=== PATIENT | male | born 1950 | race Caucasian/White ===

== ENCOUNTER 2020-12-17 03:04 | Inpatient (IN) | payer MEDICARE ==
[2020-12-17] MEDS ORDERED: ALBUTEROL NEBULIZED 2.5 MG/3 ML INHALATION PRN (03:50)
[2020-12-17] MEDS ORDERED: PNEUMONIA PROTOCOL UTILIZED 1 EACH MISC PO PRN (03:50)
--- NOTE | 2020-12-17 03:58 | ED ---
SOB HPI - General Chief Complaint: Shortness of Breath Stated Complaint: SOB Time Seen by Provider: 12/17/20 03:12 Source: EMS Mode of arrival: EMS - History of Present Illness Initial Comments: This patient is a 70-year-old man transferred here from [facility]. The patient had reportedly been taken there for cough and some shortness of breath. When I interview the patient, he states he feels well and if it were up to him he would go home, but they sent him here to be admitted for pneumonia. Patient currently denying pain or dyspnea. The patient had chest x-ray at the other hospital which reportedly showed some bilateral interstitial infiltrate. Labs showed white blood cell count 12,200. He had lactic acid level 2.8. The patient was given cefepime 2 g and Solu-Medrol 125 mg MD Complaint: shortness of breath, cough -: days(s) Severity scale (1-10): 0 Consistency: constant Improves With: nothing Worsens With: nothing Known History Of: COPD Associated Symptoms: cough Treatments Prior to Arrival: oxygen, bronchodilator, other (Antibiotics, Solu- Medrol) - Related Data Home Medications Medication Instructions Recorded Confirmed ALPRAZolam [Xanax] 0.5 mg PO TID 12/17/20 12/17/20 Albuterol Nebulized [Ventolin 2.5 mg INHALATION RT-TID 12/17/20 12/17/20 Nebulized] Apixaban [Eliquis] 5 mg PO BID 12/17/20 12/17/20 Aspirin EC [Ecotrin Low Dose] 81 mg PO DAILY 12/17/20 12/17/20 Baclofen [Lioresal] 10 mg PO BID 12/17/20 12/17/20 Brivaracetam [Briviact] 100 mg PO BID 12/17/20 12/17/20 Cyanocobalamin [Vitamin B-12] 500 mcg PO DAILY 12/17/20 12/17/20 Donepezil [Aricept] 10 mg PO HS 12/17/20 12/17/20 Flecainide Acetate 100 mg PO BID 12/17/20 12/17/20 Fluticasone Nasal [place] [Flonase 1 spray EA NOSTRIL DAILY 12/17/20 12/17/20 Nasal [place]] Furosemide [Lasix] 20 mg PO BID 12/17/20 12/17/20 Ipratropium Nebulized [Atrovent 0.5 mg INHALATION RT-TID 12/17/20 12/17/20 Nebulized 0.2 MG/ML] Lacosamide [Vimpat] 200 mg PO BID 12/17/20 12/17/20 Levothyroxine Sodium [Synthroid] 75 mcg PO AC-BRKFST 12/17/20 12/17/20 Loratadine 10 mg PO DAILY 12/17/20 12/17/20 Metoprolol Tartrate [Lopressor] 25 mg PO BID 12/17/20 12/17/20 Mometasone/Formoterol [Dulera 100 2 puff INHALATION RT-BID 12/17/20 12/17/20 Mcg-5 Mcg Inhaler] Omeprazole 40 mg PO DAILY 12/17/20 12/17/20 PARoxetine [Paxil] 20 mg PO DAILY 12/17/20 12/17/20 Potassium Chloride ER [K-Dur 20] 20 meq PO DAILY 12/17/20 12/17/20 Rosuvastatin Calcium [Crestor] 10 mg PO HS 12/17/20 12/17/20 Zonisamide [Zonegran] 200 mg PO BID 12/17/20 12/17/20 lisinopriL [Zestril] 5 mg PO DAILY 12/17/20 12/17/20 Allergies Allergy/AdvReac Type Severity Reaction Status Date / Time No Known Allergies Allergy Verified 12/17/20 07:21 Review of Systems ROS Statement: Those systems with pertinent positive or pertinent negative responses have been documented in the HPI. ROS Other: All systems not noted in ROS Statement are negative. Constitutional: Denies: fever Respiratory: Reports: cough. Denies: dyspnea Cardiovascular: Denies: chest pain, palpitations, orthopnea, edema Gastrointestinal: Denies: abdominal pain, nausea, vomiting, diarrhea Genitourinary: Denies: dysuria, hematuria Musculoskeletal: Denies: back pain Skin: Denies: rash Neurological: Denies: headache, weakness, numbness Past Medical History Past Medical History: Atrial Fibrillation, COPD, GERD/Reflux, Hyperlipidemia, Hypertension, Memory Impairment, Seizure Disorder, Sleep Apnea/CPAP/BIPAP, Thyroid Disorder Additional Past Medical History / Comment(s): dementi, anxiety, depression, chris, epilepsy, chf, uti, back pain, tbi causing right sided weakness, pacer History of Any Multi-Drug Resistant Organisms: None Reported Additional Past Surgical History / Comment(s): pacer, colonoscopy Past Psychological History: Anxiety, Depression Smoking Status: Current every day smoker Past Alcohol Use History: Occasional Past Drug Use History: None Reported General Exam General appearance: alert, in no apparent distress Head exam: Present: atraumatic, normocephalic Eye exam: Present: normal appearance. Absent: scleral icterus, conjunctival injection Neck exam: Present: normal inspection Respiratory exam: Present: rales. Absent: respiratory distress, wheezes, rhonchi, stridor, chest wall tenderness, accessory muscle use, decreased breath sounds Cardiovascular Exam: Present: regular rate, normal rhythm, normal heart sounds. Absent: systolic murmur, diastolic murmur, rubs, gallop GI/Abdominal exam: Present: soft. Absent: distended, tenderness, guarding, rebound, rigid, mass Extremities exam: Present: normal inspection, normal capillary refill. Absent: pedal edema, calf tenderness Back exam: Present: normal inspection. Absent: CVA tenderness (R), CVA tendern ess (L) Neurological exam: Present: alert Skin exam: Present: warm, dry, intact, normal color. Absent: rash Course Vital Signs 12/17/20 12/17/20 12/17/20 03:20 04:49 07:35 Temperature 98 F 97.7 F Pulse Rate 60 60 60 Respiratory 18 18 18 Rate Blood Pressure 111/56 102/64 102/68 O2 Sat by Pulse 96 98 98 Oximetry 12/17/20 12/17/20 12/17/20 08:00 09:00 10:00 Temperature Pulse Rate 60 60 60 Respiratory 19 18 18 Rate Blood Pressure 102/68 95/60 95/60 O2 Sat by Pulse 96 92 L 94 L Oximetry 12/17/20 12/17/20 12/17/20 10:45 10:56 12:00 Temperature Pulse Rate 60 60 60 Respiratory 15 Rate Blood Pressure 96/51 O2 Sat by Pulse 96 Oximetry 12/17/20 12/17/20 12/17/20 14:09 15:00 16:00 Temperature 97.9 F Pulse Rate 60 62 Respiratory 20 20 Rate Blood Pressure 92/61 O2 Sat by Pulse 96 96 96 Oximetry 12/17/20 12/17/20 12/17/20 16:21 16:30 20:04 Temperature Pulse Rate 71 60 60 Respiratory Rate Blood Pressure O2 Sat by Pulse Oximetry 12/17/20 12/17/20 20:13 20:14 Temperature 97.7 F Pulse Rate 60 70 Respiratory 18 Rate Blood Pressure 99/75 O2 Sat by Pulse 98 Oximetry Medical Decision Making - Lab Data Result diagrams: 12/18/20 06:23 12/18/20 06:23 - EKG Data -: EKG Interpreted by [facility] EKG shows normal: axis (Rightward axis) Rate: normal (60 bpm) Interpretation: nonspecific ST-T wave changes, other (Underlying rhythm appears to be atrial paced rhythm with first-degree AV block.) Disposition Clinical Impression: Pneumonia Disposition: ADMITTED IP TO THIS [facility] Condition: Fair
[2020-12-17] MEDS: IPRATROPIUM-ALBUTEROL 3 ML NEB INHALATION SCH ×5 (07:10→20:02)
[2020-12-17] MEDS ORDERED: HEPARIN SODIUM,PORCINE/PF 5,000 UNIT/0.5 ML SYRINGE SQ SCH (09:00)
--- NOTE | 2020-12-17 09:22 | P.HPIM ---
History of Present Illness This is a pleasant 70 years old male with past medical history of hypertension, hyperlipidemia, atrial fibrillation, COPD, GERD, seizure disorder, sleep apnea on CPAP/BiPAP. History of depression, anxiety, dementia and chronic back pain Patient is transferred from [facility] for COPD and pneumonia. Patient is poor historian kind of problem because of history of dementia. He doesn't know why he went or send him to the hospital at [facility] [place]. However he can tell me he lives in his own place, he wears related to her per minute of oxygen nasal cannula. He smokes about 1 pack per day. It looks somewhat tachypneic but denies dyspnea or chest pain or coughing. No abdominal pain or nausea vomiting. EKG showing electrical atrial pacemaker rate is 60 bpm Vitals are stable, he is saturating 98% on 4 L oxygen via nasal cannula. Patient is currently covered with ceftriaxone and Zithromax. Also he is on subcutaneous heparin. On reviewing the records from [facility] he has multiple problems like hypothyroidism, hyperlipidemia, dementia, depression, obstructive sleep apnea, seizure disorder, hypertension, atrial fibrillation and congestive heart failure, chronic obstructive pulmonary disease, gastroesophageal reflux disease, benign prostatic hyperplasia. Chronic back pain. Chest x-ray showing bilateral infiltrates and/or edema Urine analysis looking turbid, blood is large, nitrite is negative Lactic acid slightly elevated at 2.8. Troponin is -0.02. Magnesium 1.9, proBNP is 147 Sodium 142, potassium 4.1, a woman 4.0, liver enzymes not elevated. Creatinine 1.0, total bilirubin 0.5, WBC is 12.2 which is slightly elevated. Platelet 140 6K, hemoglobin 16 Patient was getting cefepime and Solu-Medrol 125 mg 2 Review of Systems CONSTITUTIONAL: No fever, no malaise, no fatigue. HEENT: No recent visual problems or hearing problems. Denied any sore throat. CARDIOVASCULAR: No orthopnea, PND, no palpitations, no syncope. PULMONARY: No shortness of breath, no cough, no hemoptysis. GASTROINTESTINAL: No diarrhea, no nausea, no vomiting, no abdominal pain. No rmoactive bowel sounds. NEUROLOGICAL: No headaches, no weakness, no numbness. HEMATOLOGICAL: Denies any bleeding or petechiae. GENITOURINARY: Denies any burning micturition, frequency, or urgency. MUSCULOSKELETAL/RHEUMATOLOGICAL: Denies any joint pain, swelling, or any muscle pain. ENDOCRINE: Denies any polyuria or polydipsia. Past Medical History Past Medical History: Atrial Fibrillation, COPD, GERD/Reflux, Hyperlipidemia, Hypertension, Memory Impairment, Seizure Disorder, Sleep Apnea/CPAP/BIPAP, Thyroid Disorder Additional Past Medical History / Comment(s): dementi, anxiety, depression, chris, epilepsy, chf, uti, back pain, tbi causing right sided weakness, pacer History of Any Multi-Drug Resistant Organisms: None Reported Additional Past Surgical History / Comment(s): pacer, colonoscopy Past Psychological History: Anxiety, Depression Smoking Status: Current every day smoker Past Alcohol Use History: Occasional Past Drug Use History: None Reported Medications and Allergies Home Medications Medication Instructions Recorded Confirmed Type ALPRAZolam [Xanax] 0.5 mg PO TID 12/17/20 12/17/20 History Albuterol Nebulized [Ventolin 2.5 mg INHALATION RT-TID 12/17/20 12/17/20 History Nebulized] Apixaban [Eliquis] 5 mg PO BID 12/17/20 12/17/20 History Aspirin EC [Ecotrin Low Dose] 81 mg PO DAILY 12/17/20 12/17/20 History Baclofen [Lioresal] 10 mg PO BID 12/17/20 12/17/20 History Brivaracetam [Briviact] 100 mg PO BID 12/17/20 12/17/20 History Cyanocobalamin [Vitamin B-12] 500 mcg PO DAILY 12/17/20 12/17/20 History Donepezil [Aricept] 10 mg PO HS 12/17/20 12/17/20 History Flecainide Acetate 100 mg PO BID 12/17/20 12/17/20 History Fluticasone Nasal [place] [Flonase 1 spray EA NOSTRIL DAILY 12/17/20 12/17/20 History Nasal [place]] Furosemide [Lasix] 20 mg PO BID 12/17/20 12/17/20 History Ipratropium Nebulized [Atrovent 0.5 mg INHALATION RT-TID 12/17/20 12/17/20 History Nebulized 0.2 MG/ML] Lacosamide [Vimpat] 200 mg PO BID 12/17/20 12/17/20 History Levothyroxine Sodium [Synthroid] 75 mcg PO AC-BRKFST 12/17/20 12/17/20 History Loratadine 10 mg PO DAILY 12/17/20 12/17/20 History Metoprolol Tartrate [Lopressor] 25 mg PO BID 12/17/20 12/17/20 History Mometasone/Formoterol [Dulera 100 2 puff INHALATION RT-BID 12/17/20 12/17/20 History Mcg-5 Mcg Inhaler] Omeprazole 40 mg PO DAILY 12/17/20 12/17/20 History PARoxetine [Paxil] 20 mg PO DAILY 12/17/20 12/17/20 History Potassium Chloride ER [K-Dur 20] 20 meq PO DAILY 12/17/20 12/17/20 History Rosuvastatin Calcium [Crestor] 10 mg PO HS 12/17/20 12/17/20 History Zonisamide [Zonegran] 200 mg PO BID 12/17/20 12/17/20 History lisinopriL [Zestril] 5 mg PO DAILY 12/17/20 12/17/20 History Allergies Allergy/AdvReac Type Severity Reaction Status Date / Time No Known Allergies Allergy Verified 12/17/20 07:21 Physical Exam Vitals: Vital Signs Temp Pulse Resp BP Pulse Ox 12/17/20 04:49 60 18 102/64 98 12/17/20 03:20 98 F 60 18 111/56 96 Intake and Output 12/16/20 12/17/20 12/17/20 22:59 06:59 14:59 Other: Weight 117.934 kg GENERAL: The patient is alert and oriented x3, not in any acute distress. Well developed, well nourished. HEENT: Pupils are round and equally reacting to light. EOMI. No scleral icterus. No conjunctival pallor. Normocephalic, atraumatic. No pharyngeal erythema. No thyromegaly. CARDIOVASCULAR: S1 and S2 present. No murmurs, rubs, or gallops. -PULMONARY: Chest is clear to auscultation, no wheezing or crackles. Bilateral decreased base of breath sounds ABDOMEN: Soft, nontender, nondistended, normoactive bowel sounds. No palpable organomegaly. MUSCULOSKELETAL: No joint swelling or deformity. EXTREMITIES: No cyanosis, clubbing, or pedal edema. NEUROLOGICAL: Gross neurological examination did not reveal any focal deficits. SKIN: No rashes. No petechiae Assessment and Plan Assessment: Bilateral pneumonia abnormal urine analysis from [facility] showing blood in urine. Repeat urinalysis Hypertension Hyperlipidemia History of atrial fibrillation and congestive heart failure. Patient is on Eliquis COPD, not in acute exacerbation History of GERD History of seizure disorder Sleep apnea on CPAP/BiPAP History of depression and anxiety Dementia Benign prostatic hyperplasia Plan: This is a pleasant 70 years old male who was transferred from [facility] for pneumonia. Follow-up chest x-ray today. Continue with antibiotics. Head of bed 30 45. Check sputum culture. Check lactic acid and morning labs. Infectious disease consult repeat urinalysis. New with seizure medication zonisamide, Vimpat Social work consult Labs and medication were reviewed.. Continue same treatment. Continue with symptomatic treatment. Resume home medication. Monitor lytes and vitals. DVT and GI prophylaxis. Further recommendations depends on the clinical course of the patient DVT prophylaxis: Eliquis GI Prophylaxis: Pepcid PT/OT: Pending Prognosis is guarded
[2020-12-17] MEDS: ASPIRIN 81 MG PO SCH (09:36)
[2020-12-17] MEDS: LACOSAMIDE 50 MG TABLET PO SCH ×2 (09:36→21:28)
[2020-12-17] MEDS: BACLOFEN 10 MG TAB PO SCH ×2 (09:37→21:29)
[2020-12-17] MEDS: FUROSEMIDE 20 MG TAB PO SCH ×2 (09:37→18:13)
[2020-12-17] MEDS: PARoxetine 20 MG TAB PO SCH (09:37)
--- NOTE | 2020-12-17 10:02 | XR ---
EXAMINATION TYPE: XR chest 1V DATE OF EXAM: 12/17/2020 COMPARISON: 12/17/2020 HISTORY: Cough TECHNIQUE: Single frontal view of the chest is obtained. FINDINGS: Cardiac device seen and there is a coarsened interstitium with bibasilar subsegmental cons olidation. No gross pleural effusion or pneumothorax. Heart is enlarged. IMPRESSION: 1. Correlate for interstitial pneumonitis or venous congestion with basilar infiltrate.
[2020-12-17] MEDS: ZONISAMIDE 100 MG CAP PO SCH ×2 (10:36→22:12)
[2020-12-17] MEDS: FLECAINIDE 50 MG TAB PO SCH ×2 (10:37→21:29)
[2020-12-17 11:13] LABS: ALT 11 U/L (4-49); AST 16 U/L (17-59); African American GFR (CKD) >90 (>60 ml/min/1.73 sqM); Albumin 3.1 g/dL (3.5-5.0); Albumin/Globulin Ratio 1.2; Alkaline Phosphatase 81 U/L (38-126); Anion Gap 7 mmol/L; Bilirubin,Unconjugated 0.4 mg/dL (0.0-1.1); Blood Urea Nitrogen 14 mg/dL (9-20); Calcium 8.5 mg/dL (8.4-10.2); Carbon Dioxide 26 mmol/L (22-30); Chloride 107 mmol/L (98-107); Globulin 2.6 g/dL; Glucose 190 mg/dL (74-99); LDH 300 U/L (313-618); Magnesium 1.8 mg/dL (1.6-2.3); Non-African American GFR(CKD) 86 (>60 ml/min/1.73 sqM); Potassium 4.2 mmol/L (3.5-5.1); Sodium 140 mmol/L (137-145); Total Bilirubin 0.5 mg/dL (0.2-1.3); Total Protein 5.7 g/dL (6.3-8.2)
[2020-12-17] MEDS ORDERED: IPRATROPIUM 0.5 MG/2.5 ML NEBU INHALATION SCH (13:00)
[2020-12-17] MEDS: SYMBICORT 80-4.5 MCG INHALER INHALATION SCH (20:03)
[2020-12-17] MEDS: SODIUM CHLORIDE 0.9% 1,000 ML IV SCH (20:27)
[2020-12-17] MEDS: DONEPEZIL 10 MG TAB PO SCH (21:29)
[2020-12-17] MEDS: ATORVASTATIN 20 MG TAB PO SCH (21:29)
[2020-12-17] MEDS: APIXABAN 5 MG TAB PO SCH (21:29)
[2020-12-17] MEDS: FAMOTIDINE 20 MG/2 ML VIAL IV SCH (21:29)
[2020-12-17] MEDS: ALPRAZolam 0.5 MG TAB PO PRN (23:22)
[2020-12-18] MEDS: SODIUM CHLORIDE 0.9% 1,000 ML IV SCH (05:19)
--- NOTE | 2020-12-18 07:10 | CONS ---
CONSULTATION DATE OF SERVICE: 12/17/2020 REASON FOR CONSULTATION: Pneumonia. HISTORY OF PRESENT ILLNESS: The patient is a 70-year-old male who apparently presented initially to [facility] for cough and shortness of breath. The patient subsequently was evaluated at that facility. The patient did have a chest x-ray with evidence of bilateral interstitial infiltrate. The patient did have white count of 12,000, lactic acid 2.8. With concern for pneumonia, he was given a dose of cefepime and Solu-Medrol. Subsequently the patient was transferred to the [facility] for further evaluation. On arrival to this facility, the patient has been afebrile. The patient is currently requiring supplemental oxygen of 4 liters, down to 3 liters. Patient now specifically mentioned he is feeling fine. The patient denies any headache or URI symptoms. Denies any chest pain or shortness of breath. Did have some cough. No sputum production. No nausea, vomiting. No abdominal pain. No diarrhea. Overall feeling better and is not sure why he is in the hospital. REVIEW OF SYSTEMS: Positive points have been mentioned in HPI. Rest of the systems are negative. PAST MEDICAL HISTORY: Atrial fibrillation, COPD, gastroesophageal reflux disease, hyperlipidemia, hypertension, seizure disorder, hypothyroidism, dementia. PAST SURGICAL HISTORY: Pacemaker placement and colonoscopy. SOCIAL HISTORY: Current everyday smoker. Smokes 1 pack a day. Occasionally drinks. No drug use. FAMILY HISTORY: No pertinent findings noticed. ALLERGIES: No known drug allergies. MEDICATIONS: The patient is currently on Ventolin, DuoNeb, Xanax, Eliquis, aspirin, Lipitor, Zithromax, Baclofen, Rocephin 2 grams daily, Aricept, Pepcid, Lasix, Synthroid, Paxil, and IV fluid. PHYSICAL EXAMINATION: VITAL SIGNS: Blood pressure 130/68 with a pulse of 71, temperature 97.7, he is 93% on 3 L nasal cannula. GENERAL DESCRIPTION: Patient is an elderly male lying in bed in no distress. No tachypnea or accessory muscles of respiration use. HEENT: Examination shows no pallor or scleral icterus. Oral mucous membrane is dry. NECK: Trachea central, no thyromegaly. LUNGS: Unlabored breathing, clear to auscultation anteriorly. No wheeze or crackle. HEART: S1-S2, regular rate and rhythm. ABDOMEN: Soft, no tenderness. No guarding or rigidity. EXTREMITIES: No edema of the feet. SKIN: No rash or mass palpable. NEUROLOGICAL: Patient is awake, alert, oriented times two. Mood and affect normal. LABS: BUN of 14, creatinine 0.91. LDH was 300. CRP 8, procalcitonin 0.17. [place] and influenza PCR negative. Chest x-ray with interstitial infiltrate. DIAGNOSTIC IMPRESSION AND PLAN: Patient admitted to the hospital with increasing shortness of breath and cough in this patient who did have leukocytosis, interstitial infiltrate and concern for pneumonia, possibly community-acquired. COVID-19 has been ruled out. PLAN: 1. We will obtain a sputum for Gram stain culture. 2. Check urine for Legionella antigen. 3. Continue Rocephin and Zithromax. 4. We will follow on his clinical condition and culture to further adjust medication if needed. Thank you for this consultation. Will follow this patient along with you. MMTINYL / IJN: [id number] /
[2020-12-18 07:35] LABS: Appearance,Urine Clear (Clear); Bilirubin,Urine Negative (Negative); Blood,Urine Large (Negative); Calcium Oxalate Crystals,Urine Rare /hpf; Color,Urine Yellow; Glucose,Urine (UA) Negative (Negative); Ketones,Urine Negative (Negative); Leukocyte Esterase,Urine Small (Negative); Mucus,Urine Rare /hpf; Nitrite,Urine Negative (Negative); PH, Urine 5.5 (5.0-8.0); Protein,Urine Negative (Negative); RBC,Urine >182 /hpf (0-5); Specific Gravity,Urine 1.017 (1.001-1.035); Urobilinogen,Urine <2.0 mg/dL (<2.0); WBC,Urine 1 /hpf (0-5)
[2020-12-18] MEDS: LACOSAMIDE 50 MG TABLET PO SCH ×2 (08:43→21:06)
[2020-12-18] MEDS: FUROSEMIDE 20 MG TAB PO SCH ×2 (08:43→17:48)
[2020-12-18] MEDS: ASPIRIN 81 MG PO SCH (08:44)
[2020-12-18] MEDS: APIXABAN 5 MG TAB PO SCH ×2 (08:44→21:06)
[2020-12-18] MEDS: FLECAINIDE 50 MG TAB PO SCH ×2 (08:44→21:06)
[2020-12-18] MEDS: BACLOFEN 10 MG TAB PO SCH ×2 (08:44→21:06)
[2020-12-18] MEDS: FAMOTIDINE 20 MG/2 ML VIAL IV SCH ×2 (08:44→21:06)
[2020-12-18] MEDS: LEVOTHYROXINE 75 MCG TAB PO SCH (08:44)
[2020-12-18] MEDS: ZONISAMIDE 100 MG CAP PO SCH ×2 (08:45→21:07)
[2020-12-18] MEDS: IPRATROPIUM-ALBUTEROL 3 ML NEB INHALATION SCH ×4 (08:52→21:23)
[2020-12-18] MEDS: SYMBICORT 80-4.5 MCG INHALER INHALATION SCH ×2 (08:53→21:22)
[2020-12-18] MEDS: PARoxetine 20 MG TAB PO SCH (08:54)
[2020-12-18] MEDS: AZITHROMYCIN 500 MG TAB PO SCH (09:20)
[2020-12-18 10:57] LABS: Basophils # (A) 0.02 X 10*3/uL (0.00-0.10); Basophils % (A) 0.2 %; Eosinophils # (A) 0.11 X 10*3/uL (0.04-0.35); Eosinophils % (A) 1.2 %; HCT 39.4 % (39.6-50.0); HGB 12.4 g/dL (13.0-17.0); Lymphocytes # (A) 1.27 X 10*3/uL (0.90-5.00); Lymphocytes % (A) 13.7 %; MCH 31.2 pg (27.0-32.0); MCHC 31.5 g/dL (32.0-37.0); MCV 99.2 fL (80.0-97.0); Mean Platelet Volume 9.6 fL (9.5-12.2); Monocytes # (A) 0.65 X 10*3/uL (0.20-1.00); Neutrophils # (A) 7.17 X 10*3/uL (1.80-7.70); Neutrophils % (A) 77.6 %; Platelet Count 144 X 10*3/uL (140-440); RBC 3.97 X 10*6/uL (4.40-5.60); RDW 14.5 % (11.5-14.5); WBC 9.25 X 10*3/uL (4.50-10.00)
[2020-12-18 11:26] LABS: African American GFR (CKD) 105.6 (60.0-200.0); Albumin 3.5 g/dL (3.80-4.90); Albumin/Globulin Ratio 1.84 (1.60-3.17); Anion Gap 6.3 mmol/L (4.00-12.00); Calcium 8.1 mg/dL (8.7-10.3); Carbon Dioxide 27.7 mmol/L (21.6-31.8); Globulin 1.9 g/dL (1.6-3.3); Magnesium 1.8 mg/dL (1.5-2.4); Non-African American GFR(CKD) 91.1 (60.0-200.0); Potassium 3.5 mmol/L (3.5-5.5); Total Bilirubin 0.3 mg/dL (0.2-1.2); Total Protein 5.4 g/dL (6.2-8.2)
[2020-12-18 14:55] VITALS: BMI 38.4
[2020-12-18 16:43] LABS: C Reactive Protein 7.2 mg/dL (0.0-0.8)
[2020-12-18] MEDS: DONEPEZIL 10 MG TAB PO SCH (21:06)
[2020-12-18] MEDS: ATORVASTATIN 20 MG TAB PO SCH (21:06)
[2020-12-18] MEDS: ALPRAZolam 0.5 MG TAB PO PRN (21:12)
--- NOTE | 2020-12-18 23:04 | PN ---
PROGRESS NOTE DATE OF SERVICE: 12/18/2020 REASON FOR FOLLOWUP: Pneumonia. INTERVAL HISTORY: The patient is currently afebrile. The patient is breathing comfortably on room air. The patient denies having any chest pain or shortness of breath. Occasional cough. No nausea, vomiting, abdominal pain or diarrhea. PHYSICAL EXAMINATION: Blood pressure 122/61, pulse 103, temperature 98. He is 92% on room air. General description is an elderly male lying in bed in no distress. RESPIRATORY SYSTEM: Unlabored breathing with decreased breath sounds at the base. No wheeze. HEART: S1, S2. Regular rate and rhythm. ABDOMEN: Soft. No tenderness. LABS: Hemoglobin is 12.4, white count 9.25, BUN of 16, creatinine 0.8. Urine for Legionella antigen was negative. DIAGNOSTIC IMPRESSION AND PLAN: Patient admitted to hospital with shortness of breath and cough with concern for pneumonia. Currently covered with Rocephin and Zithromax. Sputum cultures were obtained. Those will be followed and we will monitor his clinical course closely. MMODL / IJN: [id number] /
[2020-12-19] MEDS: SODIUM CHLORIDE 0.9% 1,000 ML IV SCH (00:45)
[2020-12-19] MEDS: SYMBICORT 80-4.5 MCG INHALER INHALATION SCH ×2 (07:23→20:21)
[2020-12-19] MEDS: IPRATROPIUM-ALBUTEROL 3 ML NEB INHALATION SCH ×4 (07:23→20:21)
[2020-12-19] MEDS: LACOSAMIDE 50 MG TABLET PO SCH ×2 (07:27→20:40)
[2020-12-19] MEDS: PARoxetine 20 MG TAB PO SCH (07:28)
[2020-12-19] MEDS: ASPIRIN 81 MG PO SCH (07:28)
[2020-12-19] MEDS: FLECAINIDE 50 MG TAB PO SCH ×2 (07:28→20:40)
[2020-12-19] MEDS: LEVOTHYROXINE 75 MCG TAB PO SCH (07:28)
[2020-12-19] MEDS: APIXABAN 5 MG TAB PO SCH ×2 (07:28→20:40)
--- NOTE | 2020-12-19 07:28 | P.PN ---
Subjective This is a pleasant 70 years old male with past medical history of hypertension, hyperlipidemia, atrial fibrillation, COPD, GERD, seizure disorder, sleep apnea on CPAP/BiPAP. History of depression, anxiety, dementia and chronic back pain Patient is transferred from [facility] for COPD and pneumonia. Patient is poor historian kind of problem because of history of dementia. He doesn't know why he went or send him to the hospital at [place]. However he can tell me he lives in his own place, he wears related to her per minute of oxygen nasal cannula. He smokes about 1 pack per day. It looks somewhat tachypneic but denies dyspnea or chest pain or coughing. No abdominal pain or nausea vomiting. EKG showing electrical atrial pacemaker rate is 60 bpm Vitals are stable, he is saturating 98% on 4 L oxygen via nasal cannula. Patient is currently covered with ceftriaxone and Zithromax. Also he is on subcutaneous heparin. On reviewing the records from [facility] he has multiple problems like hypothyroidism, hyperlipidemia, dementia, depression, obstructive sleep apnea, seizure disorder, hypertension, atrial fibrillation and congestive heart failure, chronic obstructive pulmonary disease, gastroesophageal reflux disease, benign prostatic hyperplasia. Chronic back pain. Chest x-ray showing bilateral infiltrates and/or edema Urine analysis looking turbid, blood is large, nitrite is negative Lactic acid slightly elevated at 2.8. Troponin is -0.02. Magnesium 1.9, proBNP is 147 Sodium 142, potassium 4.1, a woman 4.0, liver enzymes not elevated. Creatinine 1.0, total bilirubin 0.5, WBC is 12.2 which is slightly elevated. Platelet 140 6K, hemoglobin 16 Patient was getting cefepime and Solu-Medrol 125 mg 2 12/18/2020 This is a pleasant 70 years old male was transferred from [facility] for pneumonia. He is breathing quietly with minimal cough but he stayed in bed most of the time. No chest pain. He is hemodynamically stable and labs reviewed. He is currently kept on antibiotics with azithromycin and ceftriaxone with starting to improve. Follow- up sputum culture and urine legionella. Pulmonary congestion Less likely, proBNP is an 700. Also he has hematuria here and at [facility], we will order renal ultrasound and consult urology Review of Systems CONSTITUTIONAL: No fever, no malaise, no fatigue. HEENT: No recent visual problems or hearing problems. Denied any sore throat. CARDIOVASCULAR: No orthopnea, PND, no palpitations, no syncope. PULMONARY: No shortness of breath, no cough, no hemoptysis. GASTROINTESTINAL: No diarrhea, no nausea, no vomiting, no abdominal pain. Normoactive bowel sounds. NEUROLOGICAL: No headaches, no weakness, no numbness. Active Medications Generic Name Dose Route Start Last Admin Trade Name Freq PRN Reason Stop Dose Admin Albuterol Sulfate 2.5 mg 12/17/20 03:50 Albuterol Nebulized 2.5 Mg/3 Ml INHALATION RT-Q4H PRN Shortness Of Breath Or Wheezing Albuterol/Ipratropium 3 ml 12/17/20 08:00 12/19/20 07:23 Ipratropium-Albuterol 3 Ml Neb INHALATION Not Given RT-QID CORINA Alprazolam 0.5 mg 12/17/20 08:47 12/18/20 21:12 Alprazolam 0.5 Mg Tab PO 0.5 mg BID PRN Administration Anxiety Apixaban 5 mg 12/17/20 21:00 12/18/20 21:06 Apixaban 5 Mg Tab PO 5 mg BID CORINA Administration Aspirin 81 mg 12/17/20 09:00 12/18/20 08:44 Aspirin 81 Mg PO 81 mg DAILY CORINA Administration Atorvastatin Calcium 20 mg 12/17/20 21:00 12/18/20 21:06 Atorvastatin 20 Mg Tab PO 20 mg HS CORINA Administration Azithromycin 500 mg 12/18/20 09:00 12/18/20 09:20 Azithromycin 500 Mg Tab PO 12/22/20 09:01 500 mg DAILY CORINA Administration Baclofen 10 mg 12/17/20 09:00 12/18/20 21:06 Baclofen 10 Mg Tab PO 10 mg BID CORINA Administration Budesonide/Formoterol Fumarate 2 puff 12/17/20 20:00 12/19/20 07:23 Symbicort 80-4.5 Mcg Inhaler INHALATION Not Given RT-BID CORINA Donepezil HCl 10 mg 12/17/20 21:00 12/18/20 21:06 Donepezil 10 Mg Tab PO 10 mg HS CORINA Administration Famotidine 20 mg 12/17/20 21:00 12/18/20 21:06 Famotidine 20 Mg/2 Ml Vial IV 20 mg Q12HR CORINA Administration Flecainide Acetate 100 mg 12/17/20 09:00 12/18/20 21:06 Flecainide 50 Mg Tab PO 100 mg BID CORINA Administration Furosemide 20 mg 12/17/20 09:00 12/18/20 17:48 Furosemide 20 Mg Tab PO 20 mg 0900,1800 CORINA Administration Sodium Chloride 1,000 mls @ 20 mls/hr 12/17/20 04:00 12/19/20 00:45 Saline 0.9% IV Not Given .Q24H CORINA Ceftriaxone Sodium 2 gm/ 50 mls @ 100 mls/hr 12/18/20 09:00 12/18/20 09:21 Sodium Chloride IVPB 12/20/20 09:01 100 mls/hr Q24HR CORINA Administration Lacosamide 200 mg 12/17/20 09:00 12/18/20 21:06 Lacosamide 50 Mg Tablet PO 200 mg BID CORINA Administration Levothyroxine Sodium 75 mcg 12/18/20 07:30 12/18/20 08:44 Levothyroxine 75 Mcg Tab PO 75 mcg AC-BRKFST CORINA Administration Miscellaneous Information 1 each 12/17/20 03:50 Pneumonia Protocol Utilized 1 Each Misc PO ONCE PRN Per Protocol Paroxetine HCl 20 mg 12/17/20 09:00 12/18/20 08:54 Paroxetine 20 Mg Tab PO 20 mg DAILY CORINA Administration Zonisamide 200 mg 12/17/20 09:00 12/18/20 21:07 Zonisamide 100 Mg Cap PO 200 mg BID CORINA Administration Objective - Vital Signs Vital signs: Vital Signs Temp 97.6 F 12/18/20 08:00 Pulse 60 12/18/20 09:09 Resp 16 12/18/20 09:09 BP 110/67 12/18/20 08:00 Pulse Ox 97 12/18/20 08:55 Intake & Output 12/17/20 12/18/20 12/18/20 18:59 06:59 18:59 Intake Total 236 Output Total 750 Balance -750 236 Weight 117.934 kg Intake: Oral 236 Output: Urine 750 Other: Voiding Method Indwelling Catheter Indwelling Catheter - Exam GENERAL: The patient is alert and oriented x3, not in any acute distress. Well developed, well nourished. HEENT: Pupils are round and equally reacting to light. EOMI. No scleral icterus. No conjunctival pallor. Normocephalic, atraumatic. No pharyngeal erythema. No thyromegaly. CARDIOVASCULAR: S1 and S2 present. No murmurs, rubs, or gallops. PULMONARY: Chest is clear to auscultation, no wheezing or crackles. ABDOMEN: Soft, nontender, nondistended, normoactive bowel sounds. No palpable organomegaly. MUSCULOSKELETAL: No joint swelling or deformity. EXTREMITIES: No cyanosis, clubbing, or pedal edema. NEUROLOGICAL: Gross neurological examination did not reveal any focal deficits. SKIN: No rashes. no petechiae. - Labs CBC & Chem 7: 12/18/20 06:23 12/18/20 06:23 Labs: Abnormal Lab Results - Last 24 Hours (Table) 12/17/20 12/18/20 12/18/20 Range/Units 10:25 05:43 06:23 RBC 3.97 L (4.40-5.60) X 10*6/uL Hgb 12.4 L (13.0-17.0) g/dL Hct 39.4 L (39.6-50.0) % MCV 99.2 H (80.0-97.0) fL MCHC 31.5 L (32.0-37.0) g/dL Calcium (8.7-10.3) mg/dL AST (14-35) U/L Total Protein (6.2-8.2) g/dL Albumin (3.80-4.90) g/dL Procalcitonin 0.17 H (0.02-0.09) ng/mL Urine Blood Large H (Negative) Ur Leukocyte Esterase Small H (Negative) Urine RBC >182 H (0-5) /hpf Calcium Oxalate Crystal Rare H (None) /hpf Urine Mucus Rare H (None) /hpf 12/18/20 Range/Units 06:23 RBC (4.40-5.60) X 10*6/uL Hgb (13.0-17.0) g/dL Hct (39.6-50.0) % MCV (80.0-97.0) fL MCHC (32.0-37.0) g/dL Calcium 8.1 L (8.7-10.3) mg/dL AST 12 L (14-35) U/L Total Protein 5.4 L (6.2-8.2) g/dL Albumin 3.50 L (3.80-4.90) g/dL Procalcitonin (0.02-0.09) ng/mL Urine Blood (Negative) Ur Leukocyte Esterase (Negative) Urine RBC (0-5) /hpf Calcium Oxalate Crystal (None) /hpf Urine Mucus (None) /hpf Microbiology - Last 24 Hours (Table) 12/18/20 02:33 Gram Stain - Preliminary Sputum Sputum Culture - Preliminary Assessment and Plan Assessment: Bilateral pneumonia abnormal urine analysis from [facility] showing blood in urine. Repeat urinalysis still shows hematuria Hypertension Hyperlipidemia History of atrial fibrillation and congestive heart failure. Patient is on Eliquis COPD, not in acute exacerbation History of GERD History of seizure disorder Sleep apnea on CPAP/BiPAP History of depression and anxiety Dementia Benign prostatic hyperplasia Plan: This is a pleasant 70 years old male who was transferred from [facility] for pneumonia. Follow-up chest x-ray today. Continue with antibiotics. Head of bed 30 45. Check sputum culture. Check lactic acid and morning labs. Infectious disease consult Check renal ultrasound. Consult urology for hematuria New with seizure medication zonisamide, Vimpat Social work consult Labs and medication were reviewed.. Continue same treatment. Continue with symptomatic treatment. Resume home medication. Monitor lytes and vitals. DVT and GI prophylaxis. Further recommendations depends on the clinical course of the patient DVT prophylaxis: Eliquis GI Prophylaxis: Pepcid PT/OT: Pending Prognosis is guarded
[2020-12-19] MEDS: FUROSEMIDE 20 MG TAB PO SCH ×2 (07:29→16:46)
[2020-12-19] MEDS: ZONISAMIDE 100 MG CAP PO SCH ×2 (07:29→20:40)
[2020-12-19] MEDS: BACLOFEN 10 MG TAB PO SCH ×2 (07:29→20:40)
[2020-12-19] MEDS: FAMOTIDINE 20 MG/2 ML VIAL IV SCH ×2 (07:29→20:40)
[2020-12-19] MEDS: AZITHROMYCIN 500 MG TAB PO SCH (07:29)
--- NOTE | 2020-12-19 07:30 | P.PN ---
Subjective This is a pleasant 70 years old male with past medical history of hypertension, hyperlipidemia, atrial fibrillation, COPD, GERD, seizure disorder, sleep apnea on CPAP/BiPAP. History of depression, anxiety, dementia and chronic back pain Patient is transferred from [facility] for COPD and pneumonia. Patient is poor historian kind of problem because of history of dementia. He doesn't know why he went or send him to the hospital at [place]. However he can tell me he lives in his own place, he wears related to her per minute of oxygen nasal cannula. He smokes about 1 pack per day. It looks somewhat tachypneic but denies dyspnea or chest pain or coughing. No abdominal pain or nausea vomiting. EKG showing electrical atrial pacemaker rate is 60 bpm Vitals are stable, he is saturating 98% on 4 L oxygen via nasal cannula. Patient is currently covered with ceftriaxone and Zithromax. Also he is on subcutaneous heparin. On reviewing the records from [facility] he has multiple problems like hypothyroidism, hyperlipidemia, dementia, depression, obstructive sleep apnea, seizure disorder, hypertension, atrial fibrillation and congestive heart failure, chronic obstructive pulmonary disease, gastroesophageal reflux disease, benign prostatic hyperplasia. Chronic back pain. Chest x-ray showing bilateral infiltrates and/or edema Urine analysis looking turbid, blood is large, nitrite is negative Lactic acid slightly elevated at 2.8. Troponin is -0.02. Magnesium 1.9, proBNP is 147 Sodium 142, potassium 4.1, a woman 4.0, liver enzymes not elevated. Creatinine 1.0, total bilirubin 0.5, WBC is 12.2 which is slightly elevated. Platelet 140 6K, hemoglobin 16 Patient was getting cefepime and Solu-Medrol 125 mg 2 12/18/2020 This is a pleasant 70 years old male was transferred from [facility] for pneumonia. He is breathing quietly with minimal cough but he stayed in bed most of the time. No chest pain. He is hemodynamically stable and labs reviewed. He is currently kept on antibiotics with azithromycin and ceftriaxone with starting to improve. Follow- up sputum culture and urine legionella. Pulmonary congestion Less likely, proBNP is an 700. Also he has hematuria here and at [facility], we will order renal ultrasound and consult urology Review of Systems CONSTITUTIONAL: No fever, no malaise, no fatigue. HEENT: No recent visual problems or hearing problems. Denied any sore throat. CARDIOVASCULAR: No orthopnea, PND, no palpitations, no syncope. PULMONARY: No shortness of breath, no cough, no hemoptysis. GASTROINTESTINAL: No diarrhea, no nausea, no vomiting, no abdominal pain. Normoactive bowel sounds. NEUROLOGICAL: No headaches, no weakness, no numbness. Active Medications Generic Name Dose Route Start Last Admin Trade Name Freq PRN Reason Stop Dose Admin Albuterol Sulfate 2.5 mg 12/17/20 03:50 Albuterol Nebulized 2.5 Mg/3 Ml INHALATION RT-Q4H PRN Shortness Of Breath Or Wheezing Albuterol/Ipratropium 3 ml 12/17/20 08:00 12/19/20 07:23 Ipratropium-Albuterol 3 Ml Neb INHALATION Not Given RT-QID CORINA Alprazolam 0.5 mg 12/17/20 08:47 12/18/20 21:12 Alprazolam 0.5 Mg Tab PO 0.5 mg BID PRN Administration Anxiety Apixaban 5 mg 12/17/20 21:00 12/18/20 21:06 Apixaban 5 Mg Tab PO 5 mg BID CORINA Administration Aspirin 81 mg 12/17/20 09:00 12/18/20 08:44 Aspirin 81 Mg PO 81 mg DAILY CORINA Administration Atorvastatin Calcium 20 mg 12/17/20 21:00 12/18/20 21:06 Atorvastatin 20 Mg Tab PO 20 mg HS CORINA Administration Azithromycin 500 mg 12/18/20 09:00 12/18/20 09:20 Azithromycin 500 Mg Tab PO 12/22/20 09:01 500 mg DAILY CORINA Administration Baclofen 10 mg 12/17/20 09:00 12/18/20 21:06 Baclofen 10 Mg Tab PO 10 mg BID CORINA Administration Budesonide/Formoterol Fumarate 2 puff 12/17/20 20:00 12/19/20 07:23 Symbicort 80-4.5 Mcg Inhaler INHALATION Not Given RT-BID CORINA Donepezil HCl 10 mg 12/17/20 21:00 12/18/20 21:06 Donepezil 10 Mg Tab PO 10 mg HS CORINA Administration Famotidine 20 mg 12/17/20 21:00 12/18/20 21:06 Famotidine 20 Mg/2 Ml Vial IV 20 mg Q12HR CORINA Administration Flecainide Acetate 100 mg 12/17/20 09:00 12/18/20 21:06 Flecainide 50 Mg Tab PO 100 mg BID CORINA Administration Furosemide 20 mg 12/17/20 09:00 12/18/20 17:48 Furosemide 20 Mg Tab PO 20 mg 0900,1800 CORINA Administration Sodium Chloride 1,000 mls @ 20 mls/hr 12/17/20 04:00 12/19/20 00:45 Saline 0.9% IV Not Given .Q24H CORINA Ceftriaxone Sodium 2 gm/ 50 mls @ 100 mls/hr 12/18/20 09:00 12/18/20 09:21 Sodium Chloride IVPB 12/20/20 09:01 100 mls/hr Q24HR CORINA Administration Lacosamide 200 mg 12/17/20 09:00 12/18/20 21:06 Lacosamide 50 Mg Tablet PO 200 mg BID CORINA Administration Levothyroxine Sodium 75 mcg 12/18/20 07:30 12/18/20 08:44 Levothyroxine 75 Mcg Tab PO 75 mcg AC-BRKFST CORINA Administration Miscellaneous Information 1 each 12/17/20 03:50 Pneumonia Protocol Utilized 1 Each Misc PO ONCE PRN Per Protocol Paroxetine HCl 20 mg 12/17/20 09:00 12/18/20 08:54 Paroxetine 20 Mg Tab PO 20 mg DAILY CORINA Administration Zonisamide 200 mg 12/17/20 09:00 12/18/20 21:07 Zonisamide 100 Mg Cap PO 200 mg BID CORINA Administration Objective - Vital Signs Vital signs: Vital Signs Temp 98.5 F 12/19/20 01:07 Pulse 62 12/19/20 01:07 Resp 17 12/19/20 01:07 BP 112/60 12/19/20 01:07 Pulse Ox 98 12/19/20 01:07 Intake & Output 12/18/20 12/19/20 12/19/20 18:59 06:59 18:59 Intake Total 472 Output Total 800 Balance -328 Weight 117.934 kg Intake: Oral 472 Output: Urine 800 Other: Voiding Method Indwelling Catheter - Exam GENERAL: The patient is alert and oriented x3, not in any acute distress. Well developed, well nourished. HEENT: Pupils are round and equally reacting to light. EOMI. No scleral icterus. No conjunctival pallor. Normocephalic, atraumatic. No pharyngeal erythema. No thyromegaly. CARDIOVASCULAR: S1 and S2 present. No murmurs, rubs, or gallops. PULMONARY: Chest is clear to auscultation, no wheezing or crackles. ABDOMEN: Soft, nontender, nondistended, normoactive bowel sounds. No palpable organomegaly. MUSCULOSKELETAL: No joint swelling or deformity. EXTREMITIES: No cyanosis, clubbing, or pedal edema. NEUROLOGICAL: Gross neurological examination did not reveal any focal deficits. SKIN: No rashes. no petechiae. - Labs CBC & Chem 7: 12/18/20 06:23 12/18/20 06:23 Labs: Abnormal Lab Results - Last 24 Hours (Table) 12/18/20 12/18/20 12/18/20 Range/Units 05:43 06:23 06:23 RBC 3.97 L (4.40-5.60) X 10*6/uL Hgb 12.4 L (13.0-17.0) g/dL Hct 39.4 L (39.6-50.0) % MCV 99.2 H (80.0-97.0) fL MCHC 31.5 L (32.0-37.0) g/dL Calcium 8.1 L (8.7-10.3) mg/dL AST 12 L (14-35) U/L C-Reactive Protein 7.2 H (0.0-0.8) mg/dL Total Protein 5.4 L (6.2-8.2) g/dL Albumin 3.50 L (3.80-4.90) g/dL Urine Blood Large H (Negative) Ur Leukocyte Esterase Small H (Negative) Urine RBC >182 H (0-5) /hpf Calcium Oxalate Crystal Rare H (None) /hpf Urine Mucus Rare H (None) /hpf Microbiology - Last 24 Hours (Table) 12/18/20 02:33 Gram Stain - Preliminary Sputum Sputum Culture - Preliminary Assessment and Plan Assessment: Bilateral pneumonia abnormal urine analysis from [facility] showing blood in urine. Repeat urinalysis still shows hematuria Hypertension Hyperlipidemia History of atrial fibrillation and congestive heart failure. Patient is on Eliquis COPD, not in acute exacerbation History of GERD History of seizure disorder Sleep apnea on CPAP/BiPAP History of depression and anxiety Dementia Benign prostatic hyperplasia Plan: This is a pleasant 70 years old male who was transferred from [facility] for pneumonia. Follow-up chest x-ray today. Continue with antibiotics. Head of bed 30 45. Check sputum culture. Infectious disease consult Check renal ultrasound. Consult urology for hematuria continue with seizure medication zonisamide, Vimpat Social work consult Labs and medication were reviewed.. Continue same treatment. Continue with symptomatic treatment. Resume home medication. Monitor lytes and vitals. DVT and GI prophylaxis. Further recommendations depends on the clinical course of the patient DVT prophylaxis: Eliquis GI Prophylaxis: Pepcid PT/OT: Pending Prognosis is guarded
--- NOTE | 2020-12-19 09:18 | US ---
EXAMINATION TYPE: US renals and bladder DATE OF EXAM: 12/19/2020 COMPARISON: NONE CLINICAL HISTORY: hematuria. Patient stated has history of renal stones with lithotripsy as well; ind welling bladder catheter is present EXAM MEASUREMENTS: Right Kidney: 11.8 x 5.0 x 5.1 cm Left Kidney: 11.0 x 6.4 x 5.3 cm Post Void Residual Volume: was not assessed on inpatient with indwelling bladder catheter Right Kidney: multiple hyperechoic foci with posterior shadowing suggesting renal calculi; largest cl uster noted mid lateral pole = 2.0 x 0.8 x 0.6cm. Left Kidney: multiple hyperechoic foci with posterior shadowing suggesting renal calculi ; largest cl uster seen at medial inferior = 1.1 x 1.1 x 0.5cm. Bladder: Martinez bladder catheter is noted at posterior bladder wall. IMPRESSION: 1. Bilateral renal stones without obstruction
--- NOTE | 2020-12-19 14:56 | PN ---
PROGRESS NOTE DATE OF SERVICE: 12/19/2020 REASON FOR FOLLOWUP: Pneumonia. INTERVAL HISTORY: The patient is currently afebrile. The patient is breathing comfortably. Denies having any chest pain or shortness of breath or cough. No nausea, no vomiting. No abdominal pain or diarrhea. PHYSICAL EXAMINATION: Blood pressure 129/70, pulse 64, temperature 98.4. He is 97% on 3 L nasal cannula. General description is an elderly male lying in bed in no distress. RESPIRATORY SYSTEM: Unlabored breathing, clear to auscultation anteriorly. HEART: S1, S2. Regular rate and rhythm. ABDOMEN: Soft. No tenderness. LABS: No new labs have been obtained today. His white count is normal as of yesterday. DIAGNOSTIC IMPRESSION AND PLAN: Patient admitted to hospital with shortness of breath and cough with concern for possible pneumonia. Sputum culture currently pending. Patient covered with Rocephin and Zithromax. Will continue while waiting for the culture to finalize. Monitor his clinical course closely. MMODL / IJN: [id number] /
--- NOTE | 2020-12-19 15:35 | P.GSCN ---
History of Present Illness Consult date: 12/19/20 Reason for Consult: Renal calculi, hematuria Requesting physician: Deion E Sheet History of present illness: The patient is a 70-year-old white male with multiple medical problems. He is currently admitted for treatment of pneumonia. He has a history of kidney stones, for which she previously underwent left ESWL. He currently denies flank pain and gross hematuria. He currently has an indwelling Martinez catheter in place, draining clear urine. Urinalysis has shown evidence of microhematuria. Ultrasound shows bilateral renal calculi with no evidence of hydronephrosis. The largest stone on the left measures 1 cm, while the largest on the right measures 2 cm. Review of Systems - Constitutional Denies chills, Denies fever - Respiratory Reports dyspnea - Genitourinary Reports kidney stones, Denies flank pain, Denies hematuria Past Medical History Past Medical History: Atrial Fibrillation, COPD, GERD/Reflux, Hyperlipidemia, Hypertension, Memory Impairment, Seizure Disorder, Sleep Apnea/CPAP/BIPAP, Thyroid Disorder Additional Past Medical History / Comment(s): dementi, anxiety, depression, chris, epilepsy, chf, uti, back pain, tbi causing right sided weakness, pacer History of Any Multi-Drug Resistant Organisms: None Reported Additional Past Surgical History / Comment(s): pacer, colonoscopy, ESWL Past Psychological History: Anxiety, Depression Smoking Status: Current every day smoker Past Alcohol Use History: Occasional Past Drug Use History: None Reported Medications and Allergies Home Medications Medication Instructions Recorded Confirmed Type ALPRAZolam [Xanax] 0.5 mg PO TID 12/17/20 12/17/20 History Albuterol Nebulized [Ventolin 2.5 mg INHALATION RT-TID 12/17/20 12/17/20 History Nebulized] Apixaban [Eliquis] 5 mg PO BID 12/17/20 12/17/20 History Aspirin EC [Ecotrin Low Dose] 81 mg PO DAILY 12/17/20 12/17/20 History Baclofen [Lioresal] 10 mg PO BID 12/17/20 12/17/20 History Brivaracetam [Briviact] 100 mg PO BID 12/17/20 12/17/20 History Cyanocobalamin [Vitamin B-12] 500 mcg PO DAILY 12/17/20 12/17/20 History Donepezil [Aricept] 10 mg PO HS 12/17/20 12/17/20 History Flecainide Acetate 100 mg PO BID 12/17/20 12/17/20 History Fluticasone Nasal [place] [Flonase 1 spray EA NOSTRIL DAILY 12/17/20 12/17/20 History Nasal [place]] Furosemide [Lasix] 20 mg PO BID 12/17/20 12/17/20 History Ipratropium Nebulized [Atrovent 0.5 mg INHALATION RT-TID 12/17/20 12/17/20 History Nebulized 0.2 MG/ML] Lacosamide [Vimpat] 200 mg PO BID 12/17/20 12/17/20 History Levothyroxine Sodium [Synthroid] 75 mcg PO AC-BRKFST 12/17/20 12/17/20 History Loratadine 10 mg PO DAILY 12/17/20 12/17/20 History Metoprolol Tartrate [Lopressor] 25 mg PO BID 12/17/20 12/17/20 History Mometasone/Formoterol [Dulera 100 2 puff INHALATION RT-BID 12/17/20 12/17/20 History Mcg-5 Mcg Inhaler] Omeprazole 40 mg PO DAILY 12/17/20 12/17/20 History PARoxetine [Paxil] 20 mg PO DAILY 12/17/20 12/17/20 History Potassium Chloride ER [K-Dur 20] 20 meq PO DAILY 12/17/20 12/17/20 History Rosuvastatin Calcium [Crestor] 10 mg PO HS 12/17/20 12/17/20 History Zonisamide [Zonegran] 200 mg PO BID 12/17/20 12/17/20 History lisinopriL [Zestril] 5 mg PO DAILY 12/17/20 12/17/20 History Allergies Allergy/AdvReac Type Severity Reaction Status Date / Time No Known Allergies Allergy Verified 12/17/20 07:21 Surgical - Exam Vital Signs Temp Pulse Resp BP Pulse Ox 98 F 60 18 111/56 96 12/17/20 03:20 12/17/20 03:20 12/17/20 03:20 12/17/20 03:20 12/17/20 03:20 - General well developed, well nourished, no distress - Respiratory normal respiratory effort - Abdomen Abdomen: soft, non tender, no guarding, no rigid, no rebound - Genitourinary normal penis with no external lesions - Psychiatric oriented to time, oriented to person, oriented to place, speech is normal, memory intact Results - Labs 12/18/20 06:23 12/18/20 06:23 Abnormal Lab Results - Last 24 Hours (Table) 12/18/20 Range/Units 06:23 C-Reactive Protein 7.2 H (0.0-0.8) mg/dL Microbiology - Last 24 Hours (Table) 12/18/20 02:33 Gram Stain - Preliminary Sputum Sputum Culture - Preliminary - Imaging US - kidney/bladder: report reviewed Assessment and Plan (1) Calculus of kidney Current Visit: Yes Status: Acute Code(s): N20.0 - CALCULUS OF KIDNEY SNOMED Code(s): 29449789 (2) Microhematuria Current Visit: Yes Status: Acute Code(s): R31.29 - OTHER MICROSCOPIC HEMATURIA SNOMED Code(s): 744837430 Plan: The patient has bilateral renal calculi by ultrasound, but is asymptomatic. Ultrasound shows no evidence of hydronephrosis, and his renal function is normal. He thus declines further evaluation or treatment of his renal calculi. The microhematuria is likely due to the renal calculi, but he will undergo outpatient cystoscopy to rule out intravesical pathology. The Martinez catheter may be removed when no longer medically needed. Please notify me if I can be of any further assistance. Time with Patient: Greater than 30
[2020-12-19] MEDS: DONEPEZIL 10 MG TAB PO SCH (20:40)
[2020-12-19] MEDS: ATORVASTATIN 20 MG TAB PO SCH (20:40)
[2020-12-20] MEDS: SODIUM CHLORIDE 0.9% 1,000 ML IV SCH ×2 (02:20→03:12)
[2020-12-20] MEDS: FUROSEMIDE 20 MG TAB PO SCH ×2 (07:16→17:00)
[2020-12-20] MEDS: BACLOFEN 10 MG TAB PO SCH ×2 (07:16→20:24)
[2020-12-20] MEDS: LACOSAMIDE 50 MG TABLET PO SCH ×2 (07:16→20:24)
[2020-12-20] MEDS: AZITHROMYCIN 500 MG TAB PO SCH (07:16)
[2020-12-20] MEDS: ASPIRIN 81 MG PO SCH (07:16)
[2020-12-20] MEDS: PARoxetine 20 MG TAB PO SCH (07:16)
[2020-12-20] MEDS: APIXABAN 5 MG TAB PO SCH ×2 (07:17→20:24)
[2020-12-20] MEDS: ZONISAMIDE 100 MG CAP PO SCH ×2 (07:17→20:24)
[2020-12-20] MEDS: LEVOTHYROXINE 75 MCG TAB PO SCH ×2 (07:17→07:31)
[2020-12-20] MEDS: FAMOTIDINE 20 MG/2 ML VIAL IV SCH ×2 (07:17→20:24)
[2020-12-20] MEDS: FLECAINIDE 50 MG TAB PO SCH ×2 (07:18→20:24)
[2020-12-20] MEDS: SYMBICORT 80-4.5 MCG INHALER INHALATION SCH ×2 (08:49→20:13)
[2020-12-20] MEDS: IPRATROPIUM-ALBUTEROL 3 ML NEB INHALATION SCH ×4 (08:49→20:13)
[2020-12-20 10:37] LABS: Basophils # (A) 0.03 X 10*3/uL (0.00-0.10); Basophils % (A) 0.3 %; Eosinophils # (A) 0.21 X 10*3/uL (0.04-0.35); Eosinophils % (A) 2.3 %; HCT 48.7 % (39.6-50.0); HGB 14.8 g/dL (13.0-17.0); Lymphocytes # (A) 1.22 X 10*3/uL (0.90-5.00); Lymphocytes % (A) 13.5 %; MCH 30.3 pg (27.0-32.0); MCHC 30.4 g/dL (32.0-37.0); MCV 99.6 fL (80.0-97.0); Mean Platelet Volume 9.3 fL (9.5-12.2); Monocytes # (A) 0.64 X 10*3/uL (0.20-1.00); Monocytes % (A) 7.1 %; Neutrophils # (A) 6.89 X 10*3/uL (1.80-7.70); Neutrophils % (A) 76.5 %; Platelet Count 201 X 10*3/uL (140-440); RBC 4.89 X 10*6/uL (4.40-5.60); RDW 14.6 % (11.5-14.5); WBC 9.02 X 10*3/uL (4.50-10.00)
--- NOTE | 2020-12-20 10:40 | PN ---
PROGRESS NOTE DATE OF SERVICE: 12/20/2020 REASON FOR FOLLOWUP: Pneumonia. INTERVAL HISTORY: The patient is currently afebrile. The patient is breathing comfortably, currently on 3 L nasal cannula. When asked specifically, denies having any chest pain, shortness of breath or cough. No abdominal pain and no diarrhea has been reported. PHYSICAL EXAMINATION: Blood pressure 126/81 with a pulse of 69, temperature 98.9. He is 96% on 3 L nasal cannula. General description is an elderly male lying in bed in no distress. RESPIRATORY SYSTEM: Unlabored breathing, clear to auscultation anteriorly. HEART: S1, S2. Regular rate and rhythm. ABDOMEN: Soft, no tenderness. LABS: Hemoglobin 12.4, white count 9.25, creatinine 0.8. Cultures so far negative. DIAGNOSTIC IMPRESSION AND PLAN: The patient admitted to the hospital with shortness of breath and cough with concern for pneumonia, sputum has been usual respiratory jamal. He is on Rocephin and Zithromax. Finish therapy with oral Ceftin and close outpatient followup. MMODL / IJN: [id number] /
[2020-12-20 13:21] LABS: BUN/Creat Ratio 17.27 Ratio (12.00-20.00); Non-African American GFR(CKD) 68.1 (60.0-200.0); Potassium 3.8 mmol/L (3.5-5.5)
[2020-12-20] MEDS ORDERED: FUROSEMIDE 10 MG/ML 2 ML VIAL IV STA (14:42)
[2020-12-20] MEDS: ATORVASTATIN 20 MG TAB PO SCH (20:24)
[2020-12-20] MEDS: DONEPEZIL 10 MG TAB PO SCH (20:24)
[2020-12-21] MEDS: SODIUM CHLORIDE 0.9% 1,000 ML IV SCH (03:26)
[2020-12-21] MEDS: LEVOTHYROXINE 75 MCG TAB PO SCH (05:47)
[2020-12-21] MEDS: APIXABAN 5 MG TAB PO SCH ×2 (07:26→20:14)
[2020-12-21] MEDS: PARoxetine 20 MG TAB PO SCH (07:26)
[2020-12-21] MEDS: ASPIRIN 81 MG PO SCH (07:26)
[2020-12-21] MEDS: LACOSAMIDE 50 MG TABLET PO SCH ×2 (07:26→20:13)
[2020-12-21] MEDS: BACLOFEN 10 MG TAB PO SCH ×2 (07:26→20:14)
[2020-12-21] MEDS: AZITHROMYCIN 500 MG TAB PO SCH (07:28)
[2020-12-21] MEDS: FAMOTIDINE 20 MG/2 ML VIAL IV SCH ×2 (07:28→20:14)
[2020-12-21] MEDS: FLECAINIDE 50 MG TAB PO SCH ×2 (07:29→20:14)
[2020-12-21] MEDS: ZONISAMIDE 100 MG CAP PO SCH ×2 (07:30→20:14)
[2020-12-21] MEDS: FUROSEMIDE 20 MG TAB PO SCH ×2 (07:30→19:33)
[2020-12-21] MEDS: IPRATROPIUM-ALBUTEROL 3 ML NEB INHALATION SCH ×4 (08:28→20:38)
[2020-12-21] MEDS: SYMBICORT 80-4.5 MCG INHALER INHALATION SCH ×2 (08:29→20:40)
[2020-12-21] MEDS ORDERED: LORazepam 2 MG/ML INJ ONE (10:31)
--- NOTE | 2020-12-21 12:05 | P.PN ---
Subjective Progress Note Date: 12/19/20 Principal diagnosis: Bilateral pneumonia This is a pleasant 70 years old male with past medical history of hypertension, hyperlipidemia, atrial fibrillation, COPD, GERD, seizure disorder, sleep apnea on CPAP/BiPAP. History of depression, anxiety, dementia and chronic back pain Patient is transferred from [facility] for COPD and pneumonia. Patient is poor historian kind of problem because of history of dementia. He doesn't know why he went or send him to the hospital at [place]. However he can tell me he lives in his own place, he wears related to her per minute of oxygen nasal cannula. He smokes about 1 pack per day. It looks somewhat tachypneic but denies dyspnea or chest pain or coughing. No abdominal pain or nausea vomiting. EKG showing electrical atrial pacemaker rate is 60 bpm Vitals are stable, he is saturating 98% on 4 L oxygen via nasal cannula. Patient is currently covered with ceftriaxone and Zithromax. Also he is on subcutaneous heparin. On reviewing the records from [facility] he has multiple problems like hypothyroidism, hyperlipidemia, dementia, depression, obstructive sleep apnea, seizure disorder, hypertension, atrial fibrillation and congestive heart failure, chronic obstructive pulmonary disease, gastroesophageal reflux disease, benign prostatic hyperplasia. Chronic back pain. Chest x-ray showing bilateral infiltrates and/or edema Urine analysis looking turbid, blood is large, nitrite is negative Lactic acid slightly elevated at 2.8. Troponin is -0.02. Magnesium 1.9, proBNP is 147 Sodium 142, potassium 4.1, a woman 4.0, liver enzymes not elevated. Creatinine 1.0, total bilirubin 0.5, WBC is 12.2 which is slightly elevated. Platelet 140 6K, hemoglobin 16 Patient was getting cefepime and Solu-Medrol 125 mg 2 12/18/2020 This is a pleasant 70 years old male was transferred from [facility] for pneumonia. He is breathing quietly with minimal cough but he stayed in bed most of the time. No chest pain. He is hemodynamically stable and labs reviewed. He is currently kept on antibiotics with azithromycin and ceftriaxone with starting to improve. Follow- up sputum culture and urine legionella. Pulmonary congestion Less likely, proBNP is an 700. Also he has hematuria here and at [facility], we will order renal ultrasound and consult urology 12/19/2020 Patient is currently sitting in a chair comfortably. Denied any complaints of chest pain or worsening shortness of breath. No fever no chills. Urine legionella antigen negative. Patient is being continued on antibiotics in the form of ceftriaxone and azithromycin. Sputum cultures are not finalized yet. Patient will be continued on oral Lasix and consider IV Lasix dose. Patient is currently on. Oxygen via nasal cannula. Patient is supposed be on oxygen at night but he is not compliant with it. Now, as her nausea vomiting or diarrhea. Current medications reviewed. Review of Systems CONSTITUTIONAL: No fever, no malaise, no fatigue. HEENT: No recent visual problems or hearing problems. Denied any sore throat. CARDIOVASCULAR: No orthopnea, PND, no palpitations, no syncope. PULMONARY: No shortness of breath, no cough, no hemoptysis. GASTROINTESTINAL: No diarrhea, no nausea, no vomiting, no abdominal pain. Normoactive bowel sounds. NEUROLOGICAL: No headaches, no weakness, no numbness. Objective - Vital Signs Vital signs: Vital Signs Temp 99 F 12/19/20 13:43 Pulse 83 12/19/20 13:43 Resp 20 12/19/20 13:43 BP 123/73 12/19/20 13:43 Pulse Ox 93 L 12/19/20 13:43 Intake & Output 12/18/20 12/19/20 12/19/20 18:59 06:59 18:59 Intake Total 472 Output Total 800 Balance -328 Weight 117.934 kg Intake: Oral 472 Output: Urine 800 Other: Voiding Method Indwelling Catheter - Exam - Exam GENERAL: The patient is alert and oriented x3, not in any acute distress. Well developed, well nourished. HEENT: Pupils are round and equally reacting to light. EOMI. No scleral icterus. No conjunctival pallor. Normocephalic, atraumatic. No pharyngeal erythema. No thyromegaly. CARDIOVASCULAR: S1 and S2 present. No murmurs, rubs, or gallops. PULMONARY: Chest is clear to auscultation, no wheezing or crackles. Bibasilar coarse sounds. ABDOMEN: Soft, nontender, nondistended, normoactive bowel sounds. No palpable organomegaly. MUSCULOSKELETAL: No joint swelling or deformity. EXTREMITIES: No cyanosis, clubbing, or pedal edema. NEUROLOGICAL: Gross neurological examination did not reveal any focal deficits. SKIN: No rashes. no petechiae. - Labs CBC & Chem 7: 12/20/20 05:58 12/20/20 05:58 Labs: Abnormal Lab Results - Last 24 Hours (Table) 12/18/20 Range/Units 06:23 C-Reactive Protein 7.2 H (0.0-0.8) mg/dL Microbiology - Last 24 Hours (Table) 12/18/20 02:33 Gram Stain - Preliminary Sputum Sputum Culture - Preliminary Assessment and Plan Assessment: Bilateral pneumonia abnormal urine analysis from [facility] showing blood in urine. Repeat urinalysis still shows hematuria likely due to renal stones Nephrolithiasis nonobstructing. Seen by urology and recommends no intervention while inpatient. Follow-up as an outpatient. Hypertension Hyperlipidemia History of atrial fibrillation and congestive heart failure. Patient is on Eliquis COPD, not in acute exacerbation History of GERD History of seizure disorder Sleep apnea on CPAP/BiPAP History of depression and anxiety Dementia Benign prostatic hyperplasia DVT prophylaxis. Patient is already on liquids. Plan: This is a pleasant 70 years old male who was transferred from [facility] for pneumonia. Follow-up chest x-ray today. Correlate for interstitial pneumonitis or venous congestion with basilar infiltrate. Continue with antibiotics. Head of bed 30 45. Follow-up sputum culture. Infectious disease is on board. Check renal ultrasound. Patient was seen by urology. Renal ultrasound showed bilateral renal stones without obstruction. continue with seizure medication zonisamide, Vimpat Social work consult DVT and GI prophylaxis. Further recommendations depends on the clinical course of the patient DVT prophylaxis: Eliquis GI Prophylaxis: Pepcid PT/OT: Pending Prognosis is guarded Time with Patient: Greater than 30
--- NOTE | 2020-12-21 12:07 | P.PN ---
Subjective Progress Note Date: 12/20/20 Principal diagnosis: Bilateral pneumonia This is a pleasant 70 years old male with past medical history of hypertension, hyperlipidemia, atrial fibrillation, COPD, GERD, seizure disorder, sleep apnea on CPAP/BiPAP. History of depression, anxiety, dementia and chronic back pain Patient is transferred from [facility] for COPD and pneumonia. Patient is poor historian kind of problem because of history of dementia. He doesn't know why he went or send him to the hospital at [place]. However he can tell me he lives in his own place, he wears related to her per minute of oxygen nasal cannula. He smokes about 1 pack per day. It looks somewhat tachypneic but denies dyspnea or chest pain or coughing. No abdominal pain or nausea vomiting. EKG showing electrical atrial pacemaker rate is 60 bpm Vitals are stable, he is saturating 98% on 4 L oxygen via nasal cannula. Patient is currently covered with ceftriaxone and Zithromax. Also he is on subcutaneous heparin. On reviewing the records from [facility] he has multiple problems like hypothyroidism, hyperlipidemia, dementia, depression, obstructive sleep apnea, seizure disorder, hypertension, atrial fibrillation and congestive heart failure, chronic obstructive pulmonary disease, gastroesophageal reflux disease, benign prostatic hyperplasia. Chronic back pain. Chest x-ray showing bilateral infiltrates and/or edema Urine analysis looking turbid, blood is large, nitrite is negative Lactic acid slightly elevated at 2.8. Troponin is -0.02. Magnesium 1.9, proBNP is 147 Sodium 142, potassium 4.1, a woman 4.0, liver enzymes not elevated. Creatinine 1.0, total bilirubin 0.5, WBC is 12.2 which is slightly elevated. Platelet 140 6K, hemoglobin 16 Patient was getting cefepime and Solu-Medrol 125 mg 2 12/18/2020 This is a pleasant 70 years old male was transferred from [facility] for pneumonia. He is breathing quietly with minimal cough but he stayed in bed most of the time. No chest pain. He is hemodynamically stable and labs reviewed. He is currently kept on antibiotics with azithromycin and ceftriaxone with starting to improve. Follow- up sputum culture and urine legionella. Pulmonary congestion Less likely, proBNP is an 700. Also he has hematuria here and at [facility], we will order renal ultrasound and consult urology 12/19/2020 Patient is currently sitting in a chair comfortably. Denied any complaints of chest pain or worsening shortness of breath. No fever no chills. Urine legionella antigen negative. Patient is being continued on antibiotics in the form of ceftriaxone and azithromycin. Sputum cultures are not finalized yet. Patient will be continued on oral Lasix and consider IV Lasix dose. Patient is currently on. Oxygen via nasal cannula. Patient is supposed be on oxygen at night but he is not compliant with it. Now, as her nausea vomiting or diarrhea. 12/20/2020 Patient is currently sitting the chair comfortably. Requiring oxygen at 3 L via nasal cannula. Patient will be given 20 mg IV Lasix 1 and monitor respiratory status closely. Apparently patient is on oxygen at home. Chest as needed. Does have obstructive sleep apnea and COPD. Patient is being continued on antibiotics in the form of ceftriaxone and azit hromycin. ID recommends complete course with Ceftin. Sputum cultures showed moderate epithelial cells few gram-negative bacilli and few gram-positive cocci. Moderate normal jamal. Patient has been afebrile. No headache or dizziness or lightheadedness. Anticipate discharge in next 24 hours with more clinical improvement. Current medications reviewed. Review of Systems CONSTITUTIONAL: No fever, no malaise, no fatigue. HEENT: No recent visual problems or hearing problems. Denied any sore throat. CARDIOVASCULAR: No orthopnea, PND, no palpitations, no syncope. PULMONARY: No shortness of breath, no cough, no hemoptysis. GASTROINTESTINAL: No diarrhea, no nausea, no vomiting, no abdominal pain. Normoactive bowel sounds. NEUROLOGICAL: No headaches, no weakness, no numbness. Objective - Vital Signs Vital signs: Vital Signs Temp 98.8 F 12/20/20 19:07 Pulse 78 12/20/20 20:23 Resp 16 12/20/20 19:07 BP 121/76 12/20/20 19:07 Pulse Ox 93 L 12/20/20 19:07 Intake & Output 12/20/20 12/20/20 12/21/20 06:59 18:59 06:59 Output Total 2400 1600 Balance -2400 -1600 Output: Urine 2400 1600 Other: Voiding Method Indwelling Catheter # Bowel Movements 1 - Exam - Exam GENERAL: The patient is alert and oriented x3, not in any acute distress. Well developed, well nourished. HEENT: Pupils are round and equally reacting to light. EOMI. No scleral icterus. No conjunctival pallor. Normocephalic, atraumatic. No pharyngeal erythema. No thyromegaly. CARDIOVASCULAR: S1 and S2 present. No murmurs, rubs, or gallops. PULMONARY: Chest is clear to auscultation, no wheezing or crackles. Bibasilar coarse sounds. ABDOMEN: Soft, nontender, nondistended, normoactive bowel sounds. No palpable organomegaly. MUSCULOSKELETAL: No joint swelling or deformity. EXTREMITIES: No cyanosis, clubbing, or pedal edema. NEUROLOGICAL: Gross neurological examination did not reveal any focal deficits. SKIN: No rashes. no petechiae. - Labs CBC & Chem 7: 12/20/20 05:58 12/20/20 05:58 Labs: Abnormal Lab Results - Last 24 Hours (Table) 12/20/20 12/20/20 Range/Units 05:58 05:58 MCV 99.6 H (80.0-97.0) fL MCHC 30.4 L (32.0-37.0) g/dL RDW 14.6 H (11.5-14.5) % MPV 9.3 L (9.5-12.2) fL Sodium 146 H (135-145) mmol/L Glucose 136 H (70-110) mg/dL Microbiology - Last 24 Hours (Table) 12/18/20 02:33 Gram Stain - Final Sputum Sputum Culture - Final Assessment and Plan Assessment: Bilateral pneumonia abnormal urine analysis from [facility] showing blood in urine. Repeat urinalysis still shows hematuria likely due to renal stones Nephrolithiasis nonobstructing. Seen by urology and recommends no intervention while inpatient. Follow-up as an outpatient. Hypertension Hyperlipidemia History of atrial fibrillation and congestive heart failure. Patient is on Eliquis COPD, not in acute exacerbation History of GERD History of seizure disorder Sleep apnea on CPAP/BiPAP History of depression and anxiety Dementia Benign prostatic hyperplasia DVT prophylaxis. Patient is already on liquids. Plan: This is a pleasant 70 years old male who was transferred from [facility] for pneumonia. Follow-up chest x-ray today. Correlate for interstitial pneumonitis or venous congestion with basilar infiltrate. Continue with antibiotics. Head of bed 30 45. Follow-up sputum culture. Infectious disease is on board. Check renal ultrasound. Patient was seen by urology. Renal ultrasound showed bilateral renal stones without obstruction. continue with seizure medication zonisamide, Vimpat. Seizure precautions. Social work consult DVT and GI prophylaxis. Further recommendations depends on the clinical course of the patient DVT prophylaxis: Eliquis GI Prophylaxis: Pepcid PT/OT: Pending Prognosis is guarded Time with Patient: Greater than 30
--- NOTE | 2020-12-21 12:32 | PN ---
PROGRESS NOTE DATE OF SERVICE: 12/21/2020 REASON FOR FOLLOWUP: Pneumonia. INTERVAL HISTORY: The patient is currently afebrile. Patient is breathing comfortably. The patient denies having any chest pain or shortness of breath. He did have a cough not bringing up any sputum. No abdominal pain or diarrhea. PHYSICAL EXAMINATION: Blood pressure 135/71 with a pulse of 71, temperature 98. He is 94% on 3 L nasal cannula. General description is an elderly male, lying in bed in no distress. RESPIRATORY SYSTEM: Unlabored breathing, decreased intensity of breath sounds. No wheeze. HEART: S1, S2. Regular rate and rhythm. ABDOMEN: Soft, no tenderness. LABS: Hemoglobin is 14.8, white count 9.02, BUN of 19, creatinine 1.1. Sputum has been usual respiratory jamal. DIAGNOSTIC IMPRESSION AND PLAN: Patient admitted to the hospital with shortness of breath and cough with concern for pneumonia. Sputum is usual respiratory jamal. Overall improvement on Rocephin and Zithromax. Finish therapy with oral Ceftin for a week and close outpatient followup. MMODL / IJN: [id number] /
--- NOTE | 2020-12-21 13:18 | CT ---
EXAMINATION TYPE: CT angio head neck DATE OF EXAM: 12/21/2020 HISTORY: Patient poor historian COMPARISON: None. CT DLP: 1206.6 mGycm. Automated Exposure Control for Dose Reduction was Utilized. TECHNIQUE: CTA scan of the head and neck are performed with IV Contrast, patient injected with 80 mL of Isovue 370, axial images are obtained, coronal and sagittal reformatted images are reviewed. Thre e-D reconstructed images are created on an independent workstation and reviewed. FINDINGS: Carotid/Vascular Structures: 4 vessel origin from aortic arch which is normal variant. Mild periphera l calcified plaque. Normal origin right common carotid artery from right brachiocephalic artery. No s ignificant plaque or stenosis in common carotid arteries bilaterally. Mild to moderate peripheral kristian cified plaque bilateral carotid bulbs, left greater than right extends into bilateral internal caroti d arteries. Some motion artifact is present. No significant stenosis is seen. 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 Codominant vertebrobasilar system. Vertebral arteries patent to basilar junction. No significant foca l stenosis. Patent left posterior communicating artery. Hypoplastic right posterior communicating art keyonna. No significant focal stenosis or aneurysm in the posterior circulation. Anterior circulation yordan ws patent anterior indicating artery. No significant focal stenosis or aneurysm. Other: There is left frontal parietal craniotomy change with adjacent encephalomalacia, there is left -sided ex vacuo dilatation. Partial visualization of right-sided pacemaker device. Moderate to severe narrowing with moderate spurring C4-C5 level. Moderate to severe narrowing and scl erosis C6-C7 level. IMPRESSION: 1. Mild to moderate calcified plaque left greater than right without hemodynamically significant sten osis in either internal carotid artery. 2. No aneurysm at the level of [place] of [place]. No significant focal stenosis.
[2020-12-21] MEDS: DONEPEZIL 10 MG TAB PO SCH (20:13)
[2020-12-21] MEDS: ATORVASTATIN 20 MG TAB PO SCH (20:14)
--- NOTE | 2020-12-21 22:09 | P.CNNES ---
History of Present Illness Consult date: 12/21/20 Requesting physician: Elijah Hoffmann Reason for Consult: Seizure activity History of Present Illness: Patient is a 70-year-old male with history of CVA with residual right hemiplegia, and seizure disorder, came to the hospital on 12/17/2020 by ambulance as a transfer from [facility] for cough and some shortness of breath. Patient was diagnosed with pneumonia. Patient was being treated for pneumonia. Apparently today at and 10:52 AM, patient put call light on, as the physical therapist went into the room, patient started having a generalized tonic-clonic seizure. Patient was speaking in between body tensing, speech was more slurred than baseline. Patient was given 1 mg of Ativan. Patient's seizure lasted for about 2 minutes. Neurology was consulted. Patient has expressive aphasia related to his stroke, therefore history was very limited, all obtained from EMR. Patient underwent stat CTA of head and neck showed mild to moderate calcified plaque left greater than right without hemodynamically significant stenosis in either ICA. No aneurysm at the level of [place] [place] [address] head itself showed no acute process. Evidence of old encephalomalacia involving the left frontal region, with evidence of previous craniotomy. There is ex vacuo dilation of the left lateral ventricle, particularly the frontal horn. No acute process. Patient's blood test shows normal CBC with elevated MCV 99.6, platelets 201. Sodium 146 potassium 3.8, normal renal functions, normal hepatic panel. UA show s small amount of leukocyte Estrace, 1 WBC. Influenza screen negative, RSV and aponte virus PCR negative. Patient takes Vimpat 200 mg twice a day, flecainide, donepezil 10 mg, Apixaban 5 mg twice a day, Crestor, zonisamide 200 mg twice a day, B12 500 g daily, Paxil 20 mg, aspirin 81 mg, Briviact 100 mg twice a day and Lasix. Also on Xanax 0.5 mg 3 times a day and baclofen 10 mg twice a day. It appears Briviact is nonformulary in the hospital and patient has not been receiving this medication. Review of Systems Patient denies headache. ROS unobtainable: due to mental status Past Medical History Past Medical History: Atrial Fibrillation, COPD, GERD/Reflux, Hyperlipidemia, Hypertension, Memory Impairment, Seizure Disorder, Sleep Apnea/CPAP/BIPAP, Thyroid Disorder Additional Past Medical History / Comment(s): dementi, anxiety, depression, chris, epilepsy, chf, uti, back pain, tbi causing right sided weakness, pacer History of Any Multi-Drug Resistant Organisms: None Reported Additional Past Surgical History / Comment(s): pacer, colonoscopy Past Psychological History: Anxiety, Depression Smoking Status: Current every day smoker Past Alcohol Use History: Occasional Past Drug Use History: None Reported Medications and Allergies Home Medications Medication Instructions Recorded Confirmed Type ALPRAZolam [Xanax] 0.5 mg PO TID 12/17/20 12/17/20 History Albuterol Nebulized [Ventolin 2.5 mg INHALATION RT-TID 12/17/20 12/17/20 History Nebulized] Apixaban [Eliquis] 5 mg PO BID 12/17/20 12/17/20 History Aspirin EC [Ecotrin Low Dose] 81 mg PO DAILY 12/17/20 12/17/20 History Baclofen [Lioresal] 10 mg PO BID 12/17/20 12/17/20 History Brivaracetam [Briviact] 100 mg PO BID 12/17/20 12/17/20 History Cyanocobalamin [Vitamin B-12] 500 mcg PO DAILY 12/17/20 12/17/20 History Donepezil [Aricept] 10 mg PO HS 12/17/20 12/17/20 History Flecainide Acetate 100 mg PO BID 12/17/20 12/17/20 History Fluticasone Nasal [place] [Flonase 1 spray EA NOSTRIL DAILY 12/17/20 12/17/20 History Nasal [place]] Furosemide [Lasix] 20 mg PO BID 12/17/20 12/17/20 History Ipratropium Nebulized [Atrovent 0.5 mg INHALATION RT-TID 12/17/20 12/17/20 History Nebulized 0.2 MG/ML] Lacosamide [Vimpat] 200 mg PO BID 12/17/20 12/17/20 History Levothyroxine Sodium [Synthroid] 75 mcg PO AC-BRKFST 12/17/20 12/17/20 History Loratadine 10 mg PO DAILY 12/17/20 12/17/20 History Metoprolol Tartrate [Lopressor] 25 mg PO BID 12/17/20 12/17/20 History Mometasone/Formoterol [Dulera 100 2 puff INHALATION RT-BID 12/17/20 12/17/20 History Mcg-5 Mcg Inhaler] Omeprazole 40 mg PO DAILY 12/17/20 12/17/20 History PARoxetine [Paxil] 20 mg PO DAILY 12/17/20 12/17/20 History Potassium Chloride ER [K-Dur 20] 20 meq PO DAILY 12/17/20 12/17/20 History Rosuvastatin Calcium [Crestor] 10 mg PO HS 12/17/20 12/17/20 History Zonisamide [Zonegran] 200 mg PO BID 12/17/20 12/17/20 History lisinopriL [Zestril] 5 mg PO DAILY 12/17/20 12/17/20 History Cefuroxime Axetil [Ceftin] 500 mg PO BID 5 Days #10 tab 12/20/20 Rx Allergies Allergy/AdvReac Type Severity Reaction Status Date / Time No Known Allergies Allergy Verified 12/17/20 07:21 Physical Examination - Vital Signs Vital Signs: Vital Signs Temp Pulse Pulse Resp BP Pulse Ox 12/21/20 10:39 98 F 71 16 135/71 94 L 12/21/20 08:50 79 12/21/20 08:29 77 12/21/20 08:00 77 18 12/21/20 07:20 99.0 F 77 18 144/83 97 12/21/20 01:30 98.5 F 64 18 147/75 97 12/20/20 20:30 16 12/20/20 20:23 78 12/20/20 20:13 76 12/20/20 19:07 98.8 F 76 16 121/76 93 L 12/20/20 17:04 70 12/20/20 16:52 68 Intake and Output 12/20/20 12/21/20 12/21/20 22:59 06:59 14:59 Output Total 1600 800 Balance -1600 -800 Output: Urine 1600 800 Other: Voiding Method Indwelling Catheter Indwelling Catheter On examination patient is an elderly male, laying comfortably in the bed. Patient is alert and awake. Patient has some degree of expressive aph sourav. Patient can name some objects. He can follow direction like pointing to the window or pointing to the door. Patient knows that he is in [facility]. He states that he lives in [place]. Does not know name of the building. Attention, concentration, fund of knowledge is limited. On cranial exertion pupils are round and reactive to light, visual childs are full to confrontation, extraocular muscles are intact with no nystagmus. Face is symmetric, tongue protrudes the midline. Patient could not understand to check for palatal elevation and sensation. Hearing appears normal. Facial sensation normal. On muscle strength testing patient has complete spastic hemiplegia involving the right arm and leg. The strength is normal on the left side. Reflexes are somewhat diminished, but relatively brisk on the right and Babinski on the right. Cerebellar functions are normal on the left, cannot perform on the right. Sensations difficult to assess. Gait deferred. On general examination there is no carotid bruit, S1 and S2 audible, abdomen soft nontender, peripheral pulses present. Results - Laboratory Findings CBC and BMP: 12/20/20 05:58 12/20/20 05:58 Abnormal Lab Findings: Abnormal Labs 12/17/20 12/17/20 12/18/20 10:25 10:25 05:43 RBC Hgb Hct MCV MCHC RDW MPV Sodium Glucose 190 H Calcium AST 16 L Lactate Dehydrogenase 300 L C-Reactive Protein 8.0 H Total Protein 5.7 L Albumin 3.1 L Procalcitonin 0.17 H Urine Blood Large H Ur Leukocyte Esterase Small H Urine RBC >182 H Calcium Oxalate Crystal Rare H Urine Mucus Rare H 12/18/20 12/18/20 12/20/20 06:23 06:23 05:58 RBC 3.97 L Hgb 12.4 L Hct 39.4 L MCV 99.2 H 99.6 H MCHC 31.5 L 30.4 L RDW 14.6 H MPV 9.3 L Sodium Glucose Calcium 8.1 L AST 12 L Lactate Dehydrogenase C-Reactive Protein 7.2 H Total Protein 5.4 L Albumin 3.50 L Procalcitonin Urine Blood Ur Leukocyte Esterase Urine RBC Calcium Oxalate Crystal Urine Mucus 12/20/20 05:58 RBC Hgb Hct MCV MCHC RDW MPV Sodium 146 H Glucose 136 H Calcium AST Lactate Dehydrogenase C-Reactive Protein Total Protein Albumin Procalcitonin Urine Blood Ur Leukocyte Esterase Urine RBC Calcium Oxalate Crystal Urine Mucus Assessment and Plan Assessment: * Seizure disorder. Patient had a breakthrough seizure likely due to not receiving his home medication Briviact, as it is nonformulary in the hospital. * History of CVA with some expressive aphasia and right hemiplegia. * Pneumonia * Hypertension * Hyperlipidemia * Atrial fibrillation, on anticoagulation. Plan: * Resume Briviact. Apparently this is not in formulary in the hospital. Cannot obtain [facility] from [facility]. We will instead switch to Keppra 750 mg twice a day for now. After discharge patient can resume Briviact. * Continue zonisamide 200 mg twice a day and Keppra 200 mg twice a day. * Patient has Atrial fibrillation, currently on anticoagulation with Apixaban and also aspirin 81 mg. * Continue Lipitor 20 mg. * Medical management as per IM. * Please call neurology if you have any further concerns.
[2020-12-21] MEDS: ALPRAZolam 0.5 MG TAB PO PRN (22:11)
[2020-12-22] MEDS: SODIUM CHLORIDE 0.9% 1,000 ML IV SCH (04:31)
[2020-12-22] MEDS: LEVOTHYROXINE 75 MCG TAB PO SCH (05:51)
[2020-12-22] MEDS: LACOSAMIDE 50 MG TABLET PO SCH (07:31)
[2020-12-22] MEDS: ASPIRIN 81 MG PO SCH (07:31)
[2020-12-22] MEDS: FUROSEMIDE 20 MG TAB PO SCH (07:31)
[2020-12-22] MEDS: PARoxetine 20 MG TAB PO SCH (07:31)
[2020-12-22] MEDS: BACLOFEN 10 MG TAB PO SCH (07:32)
[2020-12-22] MEDS: FLECAINIDE 50 MG TAB PO SCH (07:32)
[2020-12-22] MEDS: FAMOTIDINE 20 MG/2 ML VIAL IV SCH (07:32)
[2020-12-22] MEDS: AZITHROMYCIN 500 MG TAB PO SCH (07:32)
[2020-12-22] MEDS: APIXABAN 5 MG TAB PO SCH (07:32)
[2020-12-22] MEDS: ZONISAMIDE 100 MG CAP PO SCH (07:33)
[2020-12-22] MEDS: SYMBICORT 80-4.5 MCG INHALER INHALATION SCH (08:42)
[2020-12-22] MEDS: IPRATROPIUM-ALBUTEROL 3 ML NEB INHALATION SCH ×2 (08:42→11:56)
[2020-12-22 14:58] VITALS: BP 102/70; PULSE 77; RESP 18; TEMP 98.1
--- NOTE | 2020-12-22 16:41 | PN ---
PROGRESS NOTE DATE OF SERVICE: 12/22/2020 REASON FOR FOLLOWUP: Pneumonia. INTERVAL HISTORY: The patient is currently afebrile. The patient is breathing comfortably, currently on room air. Denies any chest pain or shortness of breath. Occasional cough. No abdominal pain. No diarrhea reported. PHYSICAL EXAMINATION: Blood pressure 102/70 with a pulse of 77, temperature 98.1. He is 93% on room air. General description: The patient is an elderly male up in the in no distress. Respiratory system: Unlabored breathing, decreased intensity of breath sounds. No wheeze. Heart: S1, S2. Regular rate and rhythm. Abdomen soft, no tenderness. LABS: No new labs have been obtained today. Sputum has been usual respiratory jamal. DIAGNOSTIC IMPRESSION AND PLAN: Patient admitted to the hospital with shortness of breath, cough with concern for possible pneumonia, possibly community-acquired. Patient clinically responding to the Rocephin and Zithromax. Sputum has been negative. Finish a short course of oral Ceftin and close outpatient followup. MMODL / IJN: [id number] /
--- NOTE | 2021-01-10 23:18 | P.PN ---
Subjective Progress Note Date: 12/21/20 Principal diagnosis: Bilateral pneumonia This is a pleasant 70 years old male with past medical history of hypertension, hyperlipidemia, atrial fibrillation, COPD, GERD, seizure disorder, sleep apnea on CPAP/BiPAP. History of depression, anxiety, dementia and chronic back pain Patient is transferred from [facility] for COPD and pneumonia. Patient is poor historian kind of problem because of history of dementia. He doesn't know why he went or send him to the hospital at [place]. However he can tell me he lives in his own place, he wears related to her per minute of oxygen nasal cannula. He smokes about 1 pack per day. It looks somewhat tachypneic but denies dyspnea or chest pain or coughing. No abdominal pain or nausea vomiting. EKG showing electrical atrial pacemaker rate is 60 bpm Vitals are stable, he is saturating 98% on 4 L oxygen via nasal cannula. Patient is currently covered with ceftriaxone and Zithromax. Also he is on subcutaneous heparin. On reviewing the records from [facility] he has multiple problems like hypothyroidism, hyperlipidemia, dementia, depression, obstructive sleep apnea, seizure disorder, hypertension, atrial fibrillation and congestive heart failure, chronic obstructive pulmonary disease, gastroesophageal reflux disease, benign prostatic hyperplasia. Chronic back pain. Chest x-ray showing bilateral infiltrates and/or edema Urine analysis looking turbid, blood is large, nitrite is negative Lactic acid slightly elevated at 2.8. Troponin is -0.02. Magnesium 1.9, proBNP is 147 Sodium 142, potassium 4.1, a woman 4.0, liver enzymes not elevated. Creatinine 1.0, total bilirubin 0.5, WBC is 12.2 which is slightly elevated. Platelet 140 6K, hemoglobin 16 Patient was getting cefepime and Solu-Medrol 125 mg 2 12/18/2020 This is a pleasant 70 years old male was transferred from [facility] for pneumonia. He is breathing quietly with minimal cough but he stayed in bed most of the time. No chest pain. He is hemodynamically stable and labs reviewed. He is currently kept on antibiotics with azithromycin and ceftriaxone with starting to improve. Follow- up sputum culture and urine legionella. Pulmonary congestion Less likely, proBNP is an 700. Also he has hematuria here and at [facility], we will order renal ultrasound and consult urology 12/19/2020 Patient is currently sitting in a chair comfortably. Denied any complaints of chest pain or worsening shortness of breath. No fever no chills. Urine legionella antigen negative. Patient is being continued on antibiotics in the form of ceftriaxone and azithromycin. Sputum cultures are not finalized yet. Patient will be continued on oral Lasix and consider IV Lasix dose. Patient is currently on. Oxygen via nasal cannula. Patient is supposed be on oxygen at night but he is not compliant with it. Now, as her nausea vomiting or diarrhea. 12/20/2020 Patient is currently sitting the chair comfortably. Requiring oxygen at 3 L via nasal cannula. Patient will be given 20 mg IV Lasix 1 and monitor respiratory status closely. Apparently patient is on oxygen at home. Chest as needed. Does have obstructive sleep apnea and COPD. Patient is being continued on antibiotics in the form of ceftriaxone and azit hromycin. ID recommends complete course with Ceftin. Sputum cultures showed moderate epithelial cells few gram-negative bacilli and few gram-positive cocci. Moderate normal jamal. Patient has been afebrile. No headache or dizziness or lightheadedness. Anticipate discharge in next 24 hours with more clinical improvement. 12/21/2020 Patient had an episode of seizures this morning. Tonic-clonic generalized seizure. CT angiogram of the head showed mild to moderate calcified plaque left greater than right without hemodynamically significant stenosis in the major internal carotid artery. No aneurysm at the level of [place]. No significant focal stenosis. Patient was seen by neurology. Start back on seizure medicationBriviact, which was held due to nonpulmonary. Patient is already on zonisamide and Keppra. Patient has been afebrile. No nausea vomiting or abdominal pain or diarrhea. Current medications reviewed. Review of Systems CONSTITUTIONAL: No fever, no malaise, no fatigue. HEENT: No recent visual problems or hearing problems. Denied any sore throat. CARDIOVASCULAR: No orthopnea, PND, no palpitations, no syncope. PULMONARY: No shortness of breath, no cough, no hemoptysis. GASTROINTESTINAL: No diarrhea, no nausea, no vomiting, no abdominal pain. Normoactive bowel sounds. NEUROLOGICAL: No headaches, no weakness, no numbness. Objective - Vital Signs Vital signs: Vital Signs Temp 97.8 F 12/21/20 19:07 Pulse 80 12/21/20 20:40 Resp 16 12/21/20 19:07 BP 124/76 05/06/21 19:07 Pulse Ox 98 12/21/20 19:07 Intake & Output 12/21/20 12/21/20 12/22/20 06:59 18:59 06:59 Output Total 2400 1200 Balance -2400 -1200 Output: Urine 2400 1200 Other: Voiding Method Indwelling Catheter Indwelling Catheter # Bowel Movements 0 - Exam - Exam GENERAL: The patient is alert and oriented x3, not in any acute distress. Well developed, well nourished. HEENT: Pupils are round and equally reacting to light. EOMI. No scleral icterus. No conjunctival pallor. Normocephalic, atraumatic. No pharyngeal erythema. No thyromegaly. CARDIOVASCULAR: S1 and S2 present. No murmurs, rubs, or gallops. PULMONARY: Chest is clear to auscultation, no wheezing or crackles. Bibasilar coarse sounds. ABDOMEN: Soft, nontender, nondistended, normoactive bowel sounds. No palpable organomegaly. MUSCULOSKELETAL: No joint swelling or deformity. EXTREMITIES: No cyanosis, clubbing, or pedal edema. NEUROLOGICAL: Gross neurological examination did not reveal any focal deficits. SKIN: No rashes. no petechiae. - Labs CBC & Chem 7: 12/20/20 05:58 12/20/20 05:58 Assessment and Plan Assessment: Breakthrough seizures. Start back on home regimen of antiepileptic medications. Bilateral pneumonia abnormal urine analysis from [facility] showing blood in urine. Repeat urinalysis still shows hematuria likely due to renal stones Nephrolithiasis nonobstructing. Seen by urology and recommends no intervention while inpatient. Follow-up as an outpatient. Hypertension Hyperlipidemia History of atrial fibrillation and congestive heart failure. Patient is on Eliquis COPD, not in acute exacerbation History of GERD History of seizure disorder Sleep apnea on CPAP/BiPAP History of depression and anxiety Dementia Benign prostatic hyperplasia DVT prophylaxis. Patient is already on liquids. Plan: This is a pleasant 70 years old male who was transferred from [facility] for pneumonia. Follow-up chest x-ray today. Correlate for interstitial pneumonitis or venous congestion with basilar infiltrate. Continue with antibiotics. Head of bed 30 45. Follow-up sputum culture. Infectious disease is on board. Check renal ultrasound. Patient was seen by urology. Renal ultrasound showed bilateral renal stones without obstruction. continue with seizure medication zonisamide, Vimpat. Seizure precautions.Patient had breakthrough seizures. CT angiogram of the head and neck showed no significant stenosis. Neurology was consulted. Social work consult DVT and GI prophylaxis. Further recommendations depends on the clinical course of the patient DVT prophylaxis: Eliquis GI Prophylaxis: Pepcid PT/OT: Pending Prognosis is guarded Time with Patient: Greater than 30
--- NOTE | 2021-01-10 23:20 | P.DS ---
Providers Date of admission: 12/17/20 03:50 Expected date of discharge: 12/22/20 Attending physician: Elijah Hoffmann Consults: 12/17/20 09:05 Consult Physician Routine Consulting Provider: Coty Judd Consult Reason/Comments: pna Do you want consulting provider notified?: Yes 12/19/20 07:24 Consult Physician Urgent Consulting Provider: Se Washburn Consult Reason/Comments: hematuria Do you want consulting provider notified?: Yes 12/21/20 10:49 Consult Physician Stat Consulting Provider: Joselin Wiggins Consult Reason/Comments: seizure activity Do you want consulting provider notified?: Yes Primary care physician: [facility] Course: Discharge diagnosis Breakthrough seizures. Start back on home regimen of antiepileptic medications. Bilateral pneumonia abnormal urine analysis from [facility] showing blood in urine. Repeat urinalysis still shows hematuria likely due to renal stones Nephrolithiasis nonobstructing. Seen by urology and recommends no intervention while inpatient. Follow-up as an outpatient. Hypertension Hyperlipidemia History of atrial fibrillation and congestive heart failure. Patient is on Eliquis COPD, not in acute exacerbation History of GERD History of seizure disorder Sleep apnea on CPAP/BiPAP History of depression and anxiety Dementia Benign prostatic hyperplasia DVT prophylaxis. Patient is already on liquids. Hospital course This is a pleasant 70 years old male with past medical history of hypertension, hyperlipidemia, atrial fibrillation, COPD, GERD, seizure disorder, sleep apnea on CPAP/BiPAP. History of depression, anxiety, dementia and chronic back pain Patient is transferred from [facility] for COPD and pneumonia. Patient is poor historian kind of problem because of history of dementia. He doesn't know why he went or send him to the hospital at [place]. However he can tell me he lives in his own place, he wears related to her per minute of oxygen nasal cannula. He smokes about 1 pack per day. It looks somewhat tachypneic but denies dyspnea or chest pain or coughing. No abdominal pain or nausea vomiting. EKG showing electrical atrial pacemaker rate is 60 bpm Vitals are stable, he is saturating 98% on 4 L oxygen via nasal cannula. Patient is currently covered with ceftriaxone and Zithromax. Also he is on subcutaneous heparin. On reviewing the records from [facility] he has multiple problems like hypothyroidism, hyperlipidemia, dementia, depression, obstructive sleep apnea, seizure disorder, hypertension, atrial fibrillation and congestive heart f ailure, chronic obstructive pulmonary disease, gastroesophageal reflux disease, benign prostatic hyperplasia. Chronic back pain. Chest x-ray showing bilateral infiltrates and/or edema Urine analysis looking turbid, blood is large, nitrite is negative Lactic acid slightly elevated at 2.8. Troponin is -0.02. Magnesium 1.9, proBNP is 147 Sodium 142, potassium 4.1, a woman 4.0, liver enzymes not elevated. Creatinine 1.0, total bilirubin 0.5, WBC is 12.2 which is slightly elevated. Platelet 140 6K, hemoglobin 16 Patient was getting cefepime and Solu-Medrol 125 mg 2 12/18/2020 This is a pleasant 70 years old male was transferred from [facility] for pneumonia. He is breathing quietly with minimal cough but he stayed in bed most of the time. No chest pain. He is hemodynamically stable and labs reviewed. He is currently kept on antibiotics with azithromycin and ceftriaxone with starting to improve. Follow- up sputum culture and urine legionella. Pulmonary congestion Less likely, proBNP is an 700. Also he has hematuria here and at [facility], we will order renal ultrasound and consult urology 12/19/2020 Patient is currently sitting in a chair comfortably. Denied any complaints of chest pain or worsening shortness of breath. No fever no chills. Urine legionella antigen negative. Patient is being continued on antibiotics in the form of ceftriaxone and shelby thromycin. Sputum cultures are not finalized yet. Patient will be continued on oral Lasix and consider IV Lasix dose. Patient is currently on. Oxygen via nasal cannula. Patient is supposed be on oxygen at night but he is not compliant with it. Now, as her nausea vomiting or diarrhea. 12/20/2020 Patient is currently sitting the chair comfortably. Requiring oxygen at 3 L via nasal cannula. Patient will be given 20 mg IV Lasix 1 and monitor respiratory status closely. Apparently patient is on oxygen at home. Chest as needed. Does have obstructive sleep apnea and COPD. Patient is being continued on antibiotics in the form of ceftriaxone and azithromycin. ID recommends complete course with Ceftin. Sputum cultures showed moderate epithelial cells few gram-negative bacilli and few gram-positive cocci. Moderate normal jamal. Patient has been afebrile. No headache or dizziness or lightheadedness. Anticipate discharge in next 24 hours with more clinical improvement. 12/21/2020 Patient had an episode of seizures this morning. Tonic-clonic generalized seizure. CT angiogram of the head showed mild to moderate calcified plaque left greater than right without hemodynamically significant stenosis in the major internal carotid artery. No aneurysm at the level of [place] of [place]. No significant focal stenosis. Patient was seen by neurology. Start back on seizure medicationBriviact, which was held due to nonpulmonary. Patient is already on zonisamide and Keppra. Patient has been afebrile. No nausea vomiting or abdominal pain or diarrhea. 12/22/2020 Patient is currently sitting in the chair comfortably. Able to tolerate oral diet. No further episodes of seizures overnight. Patient was seen by neurology. Continue with home dose of antiepileptic medications and aspirin and statins. Patient did improve symptomatically and breathing status is better. Continue with oral antibiotic course to complete for pneumonia. Cleared from ID and neurology standpoint. Patient is being discharged home today. - Exam GENERAL: The patient is alert and oriented x3, not in any acute distress. Well developed, well nourished. HEENT: Pupils are round and equally reacting to light. EOMI. No scleral icterus. No conjunctival pallor. Normocephalic, atraumatic. No pharyngeal erythema. No thyromegaly. CARDIOVASCULAR: S1 and S2 present. No murmurs, rubs, or gallops. PULMONARY: Chest is clear to auscultation, no wheezing or crackles. Bibasilar coarse sounds. ABDOMEN: Soft, nontender, nondistended, normoactive bowel sounds. No palpable organomegaly. MUSCULOSKELETAL: No joint swelling or deformity. EXTREMITIES: No cyanosis, clubbing, or pedal edema. NEUROLOGICAL: Gross neurological examination did not reveal any focal deficits. SKIN: No rashes. no petechiae. Discharge vitals reviewed. Patient Condition at Discharge: Fair Plan - Discharge Summary Discharge Rx Participant: Yes New Discharge Prescriptions: New Cefuroxime Axetil [Ceftin] 500 mg PO BID 5 Days #10 tab Continue Lacosamide [Vimpat] 200 mg PO BID lisinopriL [Zestril] 5 mg PO DAILY Metoprolol Tartrate [Lopressor] 25 mg PO BID Levothyroxine Sodium [Synthroid] 75 mcg PO AC-BRKFST Flecainide Acetate 100 mg PO BID Donepezil [Aricept] 10 mg PO HS Apixaban [Eliquis] 5 mg PO BID Rosuvastatin Calcium [Crestor] 10 mg PO HS Loratadine 10 mg PO DAILY Potassium Chloride ER [K-Dur 20] 20 meq PO DAILY Fluticasone Nasal [place] [Flonase Nasal [place]] 1 spray EA NOSTRIL DAILY Baclofen [Lioresal] 10 mg PO BID Zonisamide [Zonegran] 200 mg PO BID Cyanocobalamin [Vitamin B-12] 500 mcg PO DAILY PARoxetine [Paxil] 20 mg PO DAILY Omeprazole 40 mg PO DAILY Aspirin EC [Ecotrin Low Dose] 81 mg PO DAILY Mometasone/Formoterol [Dulera 100 Mcg-5 Mcg Inhaler] 2 puff INHALATION RT-BID Ipratropium Nebulized [Atrovent Nebulized 0.2 MG/ML] 0.5 mg INHALATION RT-TID Furosemide [Lasix] 20 mg PO BID Brivaracetam [Briviact] 100 mg PO BID Albuterol Nebulized [Ventolin Nebulized] 2.5 mg INHALATION RT-TID ALPRAZolam [Xanax] 0.5 mg PO TID Discharge Medication List ALPRAZolam [Xanax] 0.5 mg PO TID 12/17/20 [History] Albuterol Nebulized [Ventolin Nebulized] 2.5 mg INHALATION RT-TID 12/17/20 [History] Apixaban [Eliquis] 5 mg PO BID 12/17/20 [History] Aspirin EC [Ecotrin Low Dose] 81 mg PO DAILY 12/17/20 [History] Baclofen [Lioresal] 10 mg PO BID 12/17/20 [History] Brivaracetam [Briviact] 100 mg PO BID 12/17/20 [History] Cyanocobalamin [Vitamin B-12] 500 mcg PO DAILY 12/17/20 [History] Donepezil [Aricept] 10 mg PO HS 12/17/20 [History] Flecainide Acetate 100 mg PO BID 12/17/20 [History] Fluticasone Nasal [place] [Flonase Nasal [place]] 1 spray EA NOSTRIL DAILY 12/17/20 [History] Furosemide [Lasix] 20 mg PO BID 12/17/20 [History] Ipratropium Nebulized [Atrovent Nebulized 0.2 MG/ML] 0.5 mg INHALATION RT-TID 12/17/20 [History] Lacosamide [Vimpat] 200 mg PO BID 12/17/20 [History] Levothyroxine Sodium [Synthroid] 75 mcg PO AC-BRKFST 12/17/20 [History] Loratadine 10 mg PO DAILY 12/17/20 [History] Metoprolol Tartrate [Lopressor] 25 mg PO BID 12/17/20 [History] Mometasone/Formoterol [Dulera 100 Mcg-5 Mcg Inhaler] 2 puff INHALATION RT-BID 12/17/20 [History] Omeprazole 40 mg PO DAILY 12/17/20 [History] PARoxetine [Paxil] 20 mg PO DAILY 12/17/20 [History] Potassium Chloride ER [K-Dur 20] 20 meq PO DAILY 12/17/20 [History] Rosuvastatin Calcium [Crestor] 10 mg PO HS 12/17/20 [History] Zonisamide [Zonegran] 200 mg PO BID 12/17/20 [History] lisinopriL [Zestril] 5 mg PO DAILY 12/17/20 [History] Cefuroxime Axetil [Ceftin] 500 mg PO BID 5 Days #10 tab 12/20/20 [Rx] Follow up Appointment(s)/Referral(s): Ej Ochoa MD [STAFF PHYSICIAN] - 01/11/21 1:40 pm Pa Montes De Oca MD [Primary Care Provider] - 12/26/20 2:00 pm ( ) [facility] [NON-STAFF] - As Needed Activity/Diet/Wound Care/Special Instructions: Follow-up with Dr. Ochoa 3 weeks after discharge for office cystoscopy ([phone]). Discharge Disposition: HOME WITH HOME HEALTH SERVICES
== END 2020-12-22 16:25 | disposition home health service (06) | DRG 194 ==
LOC: EC 03:04 → 4SSUR 03:50 → EEVIPCON 03:50 → 4SSUR 15:48
PROVIDERS: ADMIT Hospitalist; ATTEND Hospitalist
DX: J18.9 Pneumonia, unspecified organism (principal); J44.0 Chronic obstructive pulmonary disease with (acute) lower respiratory infection; I69.351 Hemiplegia and hemiparesis following cerebral infarction affecting right dominant side; I69.320 Aphasia following cerebral infarction; K21.9 Gastro-esophageal reflux disease without esophagitis; N20.0 Calculus of kidney; N40.0 Benign prostatic hyperplasia without lower urinary tract symptoms; Z20.822 Contact with and (suspected) exposure to COVID-19; E03.9 Hypothyroidism, unspecified; E78.5 Hyperlipidemia, unspecified; F03.90 Unspecified dementia, unspecified severity, without behavioral disturbance, psychotic disturbance, mood disturbance, and anxiety; F17.210 Nicotine dependence, cigarettes, uncomplicated; F32.9 Major depressive disorder, single episode, unspecified; F41.9 Anxiety disorder, unspecified; G40.909 Epilepsy, unspecified, not intractable, without status epilepticus; G47.33 Obstructive sleep apnea (adult) (pediatric); G89.29 Other chronic pain; I11.0 Hypertensive heart disease with heart failure; I48.91 Unspecified atrial fibrillation; I50.9 Heart failure, unspecified; Z79.01 Long term (current) use of anticoagulants; Z79.51 Long term (current) use of inhaled steroids; Z79.82 Long term (current) use of aspirin; Z79.890 Hormone replacement therapy; Z79.899 Other long term (current) drug therapy; Z87.442 Personal history of urinary calculi; Z95.0 Presence of cardiac pacemaker; Z99.89 Dependence on other enabling machines and devices; Z87.820 Personal history of traumatic brain injury
CPT/HCPCS: 70496; 70498; 71045; 76770; 80048; 80053; 80076; 81001; 83605; 83615; 83735; 83880; 84145; 85025; 86140; 87070; 87205; 87449; 87636; 93005; 94640; 94760; 99285

== ENCOUNTER → 2021-05-04 | Outpatient (CLI) | payer MEDICARE ==
[2021-05-04 12:54] LABS: African American GFR (CKD) >90 (>60 ml/min/1.73 sqM); Blood Urea Nitrogen 8 mg/dL (9-20); Non-African American GFR(CKD) >90 (>60 ml/min/1.73 sqM)
--- NOTE | 2021-05-04 14:16 | CT ---
EXAMINATION TYPE: CT chest w con DATE OF EXAM: 05/04/2021 COMPARISON: None HISTORY: Lung nodule. CT DLP: 697.3 mGycm, Automated exposure control for dose reduction was used. CONTRAST: Performed injected with 100 mL of Isovue M300. TECHNIQUE: Axial images were obtained at 5 mm thick sections. Reconstructed images are reviewed on Georgina Goodman computer in the coronal plane. FINDINGS: Portion of the thyroid visualized is normal. There is a 0.3 cm nodule in the periphery of the lingular base. Series 4 image 40. No enlarged mediastinal or hilar adenopathy is evident. The ascending aorta diameter at the level o f the main pulmonary artery is 3.7 cm. The main pulmonary artery diameter at the bifurcation is 2.[address] sections are obtained through the upper abdomen. Abdomen is essentially unremarkable. IMPRESSIONS: 1. Punctate nonspecific nodule lingular base. Follow-up CT can be performed in 6 months. Stability sh ould be confirmed over the course of 2 years.
== END | disposition home or self-care (01) ==
LOC: RADCTMAIN 11:42
PROVIDERS: ATTEND Internal Medicine
DX: R91.1 Solitary pulmonary nodule (principal)
CPT/HCPCS: 82565; 84520; 71260; 36415; Q9967